=== PATIENT | female | born 1965 | race Caucasian/White ===

== ENCOUNTER → 2016-03-11 12:56 | Outpatient (CLI) | payer MEDICARE, MEDICAID ==
[2015-09-07 11:05] VITALS: BMI 47.8
[~2016-03-11 12:56] MED LIST: ALBUTEROL2.5 MG/3 M INH; CARAFATE1 G PO; COLACE100 MG PO; CYCLOBENZAPRINE10 MG PO; CYMBALTA60 MG PO; DESYREL50 MG PO; DILAUDID2 MG PO; FLOVENT HFA 22012 GM INH; FUROSEMIDE20 MG PO; GLUCOPHAGE1000 MG PO; HUMALOG 30100 UNITS/; INDERAL 40 MG T40 MG PO; LASIX40 MG PO; LEVAQUIN750 MG PO; LEVEMIR100 U/M1 SC; LEVEMIR100 U/M1 SQ; LIDODERM 5 %1 PATCH TD; LIPITOR40 MG PO; LISINOPRIL5 MG PO; LOMOTIL TABLET1 TAB PO; MIRALAX17 GM PO; MULTI-DAY VITAM1 TAB PO; NEURONTIN 100100 MG PO; NEURONTIN600 MG PO; NITROSTAT0.4 MG SL; NORCO 10/325 TA1 TA1 PO; NYSTATIN1 PWD TOPICAL; OMEPRAZOLE40 MG PO; OPANA ER40 MG PO; OPANA10 MG PO; OPANA5 MG PO; OXYCONTIN10 MG PO; PHENERGAN25 M1 PO; POTASSIUM CHLO10 ME1 PO; PROVENTIL/2.5 MG/3 M INH; REQUIP0.5 MG PO; TOPROL XL50 MG PO; TRAZODONE HCL50 MG PO; VALIUM10 MG PO; WELLBUTRIN SR150 MG PO; XANAX1 MG PO; ZANAFLEX4 MG PO
== END | disposition home or self-care (01) ==
LOC: D.MRI 03-07 09:00
DX: G43.909 Migraine, unspecified, not intractable, without status migrainosus (principal); M54.2 Cervicalgia

== ENCOUNTER 2016-03-16 16:03 | Inpatient (IN) | payer MEDICARE, MEDICAID ==
[~2016-03-16] VITALS: Ht 166.4 cm; Wt 130.0 kg
[~2016-03-16 16:03] MED LIST changes: -LASIX40 MG PO; -LEVAQUIN750 MG PO; -NYSTATIN1 PWD TOPICAL
[2016-03-16 18:23] LABS: BASOPHILS 0.1 % (0.0-2.0); EOSINOPHILS 0 % (0-7); HEMOGLOBIN 14.3 g/dL (12-16); IMMATURE GRANULOCYTES 0.2 % (0-5); LYMPHOCYTES 22.2 % (15-50); MCH 31.6 pg (26.0-34.0); MCHC 31.8 g/dL (31.0-37.0); MCV 99.6 fL (80.0-100.0); MEAN PLATELET VOLUME 9.3 fL (7.4-10.4); NEUTROPHILS 71.5 % (40-80); PLATELET COUNT 247 10x3/uL (130-400); RBC 4.52 10x6/uL (4.00-5.40); RDW 14.1 % (11.5-14.5); WBC 16.1 10x3/uL (4.8-10.8)
[2016-03-16 18:35] LABS: APTT 31.4 SECONDS (22.8-39.4); INR 0.98 (0.85-1.17); PROTIME 12.8 SECONDS (11.6-15.0)
[2016-03-16 18:43] LABS: ALBUMIN 3.1 g/dL (3.4-5.0); ANION GAP 8.6 mmol/L (8-16); BILIRUBIN - TOTAL 0.6 mg/dL (0.2-1.3); CALCIUM 9.6 mg/dL (8.5-10.1); CARBON DIOXIDE 37.6 mmol/L (21.0-32.0); POTASSIUM - SERUM 4.2 mmol/L (3.5-5.1); PROTEIN - SERUM 7.8 g/dL (6.4-8.2)
[2016-03-16 19:18] LABS: APPEARANCE CLOUDY (CLEAR); BILIRUBIN NEGATIVE (NEGATIVE); COLOR YELLOW (YELLOW); GLUCOSE NEGATIVE (NEGATIVE); KETONE NEGATIVE (NEGATIVE); LEUKOCYTE ESTERASE 2+ (NEGATIVE); NITRITE POSITIVE (NEGATIVE); PROTEIN NEGATIVE (NEGATIVE); UROBILINOGEN NORMAL (NORMAL)
[2016-03-16 19:20] LABS: BACTERIA MANY /hpf (NONE SEEN); CALCIUM OXALATE CRYSTALS 0-5 /hpf (NONE SEEN); EPITHELIAL CELLS 0-5 /hpf (0-5); RED CELLS - URINE 0-5 /hpf (0-5)
--- NOTE | 2016-03-16 19:58 | NUR ---
RECEIVED PATIENT TO ROOM VIA STRETCHER. IN STABLE CONDITION. NO SIGNS OF DISTRESS NOTED. ORIENTED TO ROOM AND USE OF CALL LIGHT. BED LOW. CALL LIGHT IN REACH.
[2016-03-16] MEDS ORDERED: LASIX40 MG PO (20:07)
[2016-03-16] MEDS ORDERED: LEVEMIR100 U/M1 SC (20:08)
[2016-03-16 23:21] VITALS: BP 148/101; Ht 166.4 cm; Wt 130.0 kg
[2016-03-17 02:00] VITALS: BP 139/82
[2016-03-17 08:30] VITALS: BP 137/72
[2016-03-17 10:01] LABS: BASOPHILS 0.2 % (0.0-2.0); EOSINOPHILS 0 % (0-7); HEMOGLOBIN 13.4 g/dL (12-16); IMMATURE GRANULOCYTES 0.3 % (0-5); LYMPHOCYTES 24.7 % (15-50); MCH 30.9 pg (26.0-34.0); MCHC 31.9 g/dL (31.0-37.0); MEAN PLATELET VOLUME 9.4 fL (7.4-10.4); MONOCYTES 7.9 % (2-11); NEUTROPHILS 66.9 % (40-80); PLATELET COUNT 227 10x3/uL (130-400); RBC 4.33 10x6/uL (4.00-5.40)
[2016-03-17 10:03] LABS: WBC 9.6 10x3/uL (4.8-10.8)
[2016-03-17 10:30] LABS: ALBUMIN 2.7 g/dL (3.4-5.0); ANION GAP 9.7 mmol/L (8-16); BILIRUBIN - TOTAL 0.54 mg/dL (0.2-1.3); CALCIUM 9.7 mg/dL (8.5-10.1); CARBON DIOXIDE 35.1 mmol/L (21.0-32.0); CREATININE - SERUM 0.9 mg/dL (0.6-1.3); POTASSIUM - SERUM 3.8 mmol/L (3.5-5.1); PROTEIN - SERUM 7.2 g/dL (6.4-8.2)
[2016-03-17 12:14] VITALS: BP 131/81
--- NOTE | 2016-03-17 14:36 | NUR ---
Patient Name: JORDEN AYALA Admission Status: ER Accout number: [id number] Admission Date: 03-16-2016 : 1965 Admission Diagnosis: Attending: KELSEA Current LOS: 1 Anticipated DC Date: 03-20-2016 Planned Disposition: Home Primary Insurance: [facility] Discharge Planning Comments: CM MET WITH PATIENT AND SPOUSE (JAZZMINE) REGARDING D/C NEEDS AND PLANS. PATIENT STATED HER SPOUSE HELPS HER EVERYDAY. PATIENT STATED THEY HAVE A RAMP AT HOME TO ENTER AND NO STAIRS INSIDE. PATIENT STATED HER HELPS HER DAILY-PATIENT HAS A WALKER, W/C, CANE, SHOWER CHAIR, NEBULIZER, O2, PORT O2, AND ELEC. WHEELCHAIR AT HOME IF NEEDED. PATIENT REFUSED HOME HEALTH. CM WILL CONTINUE TO FOLLOW PATIENT WITH D/C NEEDS AND PLANS. PCP DR. POST [facility]- [phone] JAZZMINE (SPOUSE) [phone] Station Inspector: Anne Luna Is the patient Alert and Oriented? Yes 0 * How many steps to enter\exit or inside your home? RAMP 0 * PCP DR. POST 0 * Pharmacy [facility] 0 * Preadmission Environment Home with Family 0 * ADLs Partial Dependent 0 * Partial ADLs (Assistance needed) Ambulation Bathing Dressing Medication Management Toileting Transfers 0 * Equipment Bedside Commode Cane Crutch Nebulizer Oxygen Rolling Walker Shower Chair Wheelchair 0 * List name and contact numbers for known caregivers / representatives who currently or will assist patient after discharge: JAZZMINE (SPOUSE) [phone] 0 * Community resources currently utilized None 0 * Additional services required to return to the preadmission environment? Yes 0 * Can the patient safely return to the preadmission environment? Yes 0 * Has this patient been hospitalized within the prior 30 days at any hospital? No 0 Grand Total: 0
[2016-03-17 16:54] VITALS: BP 102/63
[2016-03-17 21:00] VITALS: BP 145/69
[2016-03-18 00:21] VITALS: BP 127/76
--- NOTE | 2016-03-18 02:14 | NUR ---
RESTING WITH EYES CLOSED, RESP WITH EASE, NO DISTRESS NOTED, CL IN REACH
[2016-03-18 05:00] VITALS: BP 150/91
[2016-03-18 06:43] LABS: BASOPHILS 0.2 % (0.0-2.0); EOSINOPHILS 0 % (0-7); HEMATOCRIT 41.9 % (36.0-48.0); HEMOGLOBIN 13.4 g/dL (12-16); IMMATURE GRANULOCYTES 0.2 % (0-5); MCH 31.2 pg (26.0-34.0); MCV 97.7 fL (80.0-100.0); MEAN PLATELET VOLUME 9.4 fL (7.4-10.4); MONOCYTES 9.1 % (2-11); NEUTROPHILS 62.5 % (40-80); PLATELET COUNT 221 10x3/uL (130-400); RBC 4.29 10x6/uL (4.00-5.40); RDW 14.2 % (11.5-14.5); WBC 9.6 10x3/uL (4.8-10.8)
[2016-03-18 07:05] LABS: ALBUMIN 2.7 g/dL (3.4-5.0); ALT (SGPT) 23 U/L (10-68); CALC OSMOLALITY 277 mosm/kg (275-300); CALCIUM 8.7 mg/dL (8.5-10.1); CARBON DIOXIDE 35.9 mmol/L (21.0-32.0); CHLORIDE - SERUM 98 mmol/L (98-107); CREATININE - SERUM 0.7 mg/dL (0.6-1.3); GLUCOSE 132 mg/dL (74-106); POTASSIUM - SERUM 3.7 mmol/L (3.5-5.1); SODIUM 138 mmol/L (136-145); UREA NITROGEN 13 mg/dL (7-18); eGFR NON AFRICAN AMERICAN > 90 mL/min (90-120)
--- NOTE | 2016-03-18 07:15 | NUR ---
PATIENT RECEIVED IN LEFT LATERAL POSITION ALERT AND RESTING QUIETLY. NO SIGNS OF DISTRESS NOTED. GUEST AT BEDSIDE. SIDE RAILS UP X2. BED IN LOW POSITION. CALL LIGHT IN REACH.
[2016-03-18 07:22] LABS: ALKALINE PHOSPHATASE 101 U/L (46-116); PROTEIN - SERUM 7.1 g/dL (6.4-8.2)
[2016-03-18 07:53] VITALS: BP 114/74
[2016-03-18 08:03] LABS: ERYTHROCYTE SEDIMENTATION RATE 50 mm/hr (0-30)
--- NOTE | 2016-03-18 08:33 | NUR ---
PATIENT ALERT IN BED. NO SIGNS OF DISTRESS NOTED. SCHEDULED MEDICATION ADMINSITERED. DENIES NEEDS. FAMILY PRESENT. SIDE RAILS UP X2. BED IN LOW POSITION. CALL LIGHT IN REACH.
[2016-03-18 09:22] LABS: UDS - AMPHET NEGATIVE QUAL (NEGATIVE); UDS - BARB NEGATIVE QUAL (NEGATIVE); UDS - BENZO POSITIVE QUAL (NEGATIVE); UDS - COCAINE NEGATIVE QUAL (NEGATIVE); UDS - METH NEGATIVE QUAL (NEGATIVE); UDS - OPIATE POSITIVE QUAL (NEGATIVE); UDS - PCP NEGATIVE QUAL (NEGATIVE); UDS - THC NEGATIVE QUAL (NEGATIVE)
--- NOTE | 2016-03-18 11:10 | NUR ---
ACCU CHECK 167 INSULIN PER SLIDING SCALE. CALL LIGHT IN REACH. DENIES NEEDS. DONOHUE CARE PROVIDED. DONOHUE D/C. APPROXIMATELY 100CC IN COLLECTION BAG. WELL TOLERATED. WILL CONTINUE TO MONITOR OUTPUT. CALL LIGHT IN REACH. BED IN LOW POSITION.
[2016-03-18 12:18] VITALS: BP 128/76
--- NOTE | 2016-03-18 13:00 | NUR ---
PATIENT IN HIGH SANTANA POSITION RESTING WITH EYES CLOSED. RESPIRATIONS EVEN AND UNLABORED. SIDE RAILS UP X2. BED IN LOW POSITION. CALL LIGHT IN REACH. FAMILY AT BEDSIDE.
[2016-03-18 16:18] VITALS: BP 121/75
--- NOTE | 2016-03-18 17:00 | NUR ---
PATIENT ALERT IN BED. ACCU CHECK 97. NO INSULIN PER SLIDING SCALE. DENIES NEEDS. SIDE RAILS UP X2. BED IN LOW POSITION. CALL LIGHT IN REACH. FAMILY AT BEDSIDE.
--- NOTE | 2016-03-18 20:15 | NUR ---
PATIENT SITTING UP IN BED WATCHING TV. NO SIGNS OF DISTRESS NOTED AT THIS TIME. DENIES ANY NEEDS. BED LOW CALL LIGHT IN REACH.
[2016-03-18 22:00] VITALS: BP 152/93
[2016-03-19 05:32] LABS: BASOPHILS 0.2 % (0.0-2.0); EOSINOPHILS 0 % (0-7); HEMOGLOBIN 13.4 g/dL (12-16); IMMATURE GRANULOCYTES 0.2 % (0-5); MCH 30.5 pg (26.0-34.0); MCHC 31.2 g/dL (31.0-37.0); MCV 97.9 fL (80.0-100.0); MEAN PLATELET VOLUME 9.3 fL (7.4-10.4); MONOCYTES 9.6 % (2-11); PLATELET COUNT 240 10x3/uL (130-400); RBC 4.39 10x6/uL (4.00-5.40); RDW 14.1 % (11.5-14.5); WBC 8.1 10x3/uL (4.8-10.8)
[2016-03-19 05:57] LABS: ALBUMIN 2.8 g/dL (3.4-5.0); ALKALINE PHOSPHATASE 103 U/L (46-116); ALT (SGPT) 26 U/L (10-68); CALC OSMOLALITY 278 mosm/kg (275-300); CARBON DIOXIDE 38.9 mmol/L (21.0-32.0); CHLORIDE - SERUM 97 mmol/L (98-107); CREATININE - SERUM 0.8 mg/dL (0.6-1.3); GLUCOSE 113 mg/dL (74-106); POTASSIUM - SERUM 3.6 mmol/L (3.5-5.1); PROTEIN - SERUM 7.5 g/dL (6.4-8.2); SODIUM 140 mmol/L (136-145); UREA NITROGEN 10 mg/dL (7-18); eGFR NON AFRICAN AMERICAN 80 mL/min (90-120)
--- NOTE | 2016-03-19 07:20 | NUR ---
PATIENT RECEIVED ALERT IN LOW SANTANA POSITION. RESPIRATIONS EVEN AND UNLABORED. SIDE RAILS UP X2. BED IN LOW POSITION. CALL LIGHT IN REACH.
--- NOTE | 2016-03-19 08:06 | NUR ---
PATIENT ALERT IN HIGH SANTANA POSITION. NO SIGNS OF DISTRESS NOTED. SCHEDULED MEDICATION ADMINISTERED. SIDE RAILS UP X2. BED IN LOW POSITION. CALL LIGHT IN REACH.
[2016-03-19 08:13] VITALS: BP 112/75
--- NOTE | 2016-03-19 10:38 | NUR ---
ALERT IN BED. C/O NAUSEA AND PAIN. ZOFRAN AND OXY IR ADMINISTERED PER PRN ORDER. NO FURTHER NEEDS VOICED. SIDE RAILS UP X2. BED IN LOW POSITION. CALL LIGHT IN REACH.
[2016-03-19 11:56] VITALS: BP 125/79
--- NOTE | 2016-03-19 12:05 | NUR ---
ALERT IN BED WATCHING TV. RESPIRATIONS EVEN AND UNLABORED. STATES PAIN IS BETTER. FAMILY AT BEDSIDE. SIDE RAILS UP X2. BED IN LOW POSITION. CALL LIGHT IN REACH.
[2016-03-19 12:17] LABS: ANA REFLEX - DIRECT Negative (Negative)
[2016-03-19 13:18] LABS: IMMUNOGLOBULIN E 17 IU/mL (0-100)
[2016-03-19 15:52] VITALS: BP 133/79
--- NOTE | 2016-03-19 16:05 | NUR ---
PATIENT IN LEFT LATERAL POSITION. NO SIGNS OF DISTRESS NOTED. ACCU CHECK 123. DENIES NEEDS. SIDE RAILS UP X2. BED IN LOW POSITION. CALL LIGHT IN REACH.
--- NOTE | 2016-03-19 17:50 | NUR ---
C/O NAUSEA. ZOFRAN ADMINISTERED PER PRN ORDER. DENIES FURTHER NEEDS. FAMILY PRESENT. SIDE RAILS UP X2. BED IN LOW POSITION. CALL LIGHT IN REACH.
[2016-03-19 21:33] VITALS: BP 147/75
[2016-03-20 01:00] VITALS: BP 104/68
--- NOTE | 2016-03-20 02:17 | NUR ---
PATIENT HAS 10/10 PAIN. ADMINISTERED PAIN MEDS DUE.
[2016-03-20 05:47] LABS: BASOPHILS 0.3 % (0.0-2.0); EOSINOPHILS 0 % (0-7); HEMATOCRIT 43.2 % (36.0-48.0); HEMOGLOBIN 13.7 g/dL (12-16); IMMATURE GRANULOCYTES 0.1 % (0-5); LYMPHOCYTES 38.4 % (15-50); MCHC 31.7 g/dL (31.0-37.0); MCV 97.7 fL (80.0-100.0); MEAN PLATELET VOLUME 9.3 fL (7.4-10.4); MONOCYTES 11.1 % (2-11); NEUTROPHILS 50.1 % (40-80); PLATELET COUNT 235 10x3/uL (130-400); RBC 4.42 10x6/uL (4.00-5.40); RDW 13.8 % (11.5-14.5); WBC 7.3 10x3/uL (4.8-10.8)
[2016-03-20 06:21] LABS: ALBUMIN 2.8 g/dL (3.4-5.0); BILIRUBIN - TOTAL 0.44 mg/dL (0.2-1.3); CALCIUM 9.6 mg/dL (8.5-10.1); CREATININE - SERUM 0.9 mg/dL (0.6-1.3); PROTEIN - SERUM 7.4 g/dL (6.4-8.2)
[2016-03-20 06:22] LABS: ANION GAP 8.3 mmol/L (8-16); POTASSIUM - SERUM 4.3 mmol/L (3.5-5.1)
--- NOTE | 2016-03-20 07:20 | NUR ---
PATIENT RECEIVED ALERT IN MID SANTANA POSITION. RESPIRATIONS EVEN AND UNLABORED. SIDE RAILS UP X2. BED IN LOW POSITION. CALL LIGHT IN REACH. FAMILY PRESENT.
[2016-03-20 08:19] VITALS: BP 107/67
--- NOTE | 2016-03-20 08:20 | NUR ---
PATIENT ALERT IN MID SANTANA POSITION. NO SIGNS OF DISTRESS NOTED. FAMILY AT BEDSIDE. SCHEDULED MEDICATION ADMINISTERED. DENIES NEEDS. SIDE RAILS UP X2. BED IN LOW POSITION. CALL LIGHT IN REACH.
[2016-03-20] MEDS ORDERED: NYSTATIN1 PWD TOPICAL (10:22)
--- NOTE | 2016-03-20 11:03 | NUR ---
CM REASSESSMENT NOTE: PATIENT IS DISCHARGING HOME TODAY. REFUSED HOME HEALTH. PATIENT HAS 02 AT HOME AND PORTABLE IS BEING BROUGHT TO HOSPITAL BY FOR DISCHARGE.
--- NOTE | 2016-03-20 11:10 | NUR ---
PATIENT ALERT IN BED. NO SIGNS OF DISTRESS NOTED. ANTICIPATING D/C HOME. ACCU CHECK 179. INSULIN PER SLIDING SCALE. IV TO RIGHT HAND D/C HOME WITH CATH TIP INTACT. SITE COVERED WITH GAUZE AND BANDAID.
[2016-03-20] MEDS ORDERED: LEVAQUIN750 MG PO (11:13)
[2016-03-20 11:53] VITALS: BP 121/69
--- NOTE | 2016-03-20 13:55 | NUR ---
D/C TEACHING PROVIDED TO PATIENT AND . STATES UNDERSTANDING. ALL QUESTIONS ANSWERED.
--- NOTE | 2016-03-20 14:00 | NUR ---
PATIENT D/C HOME WITH . TRANSFERRED DOWNSTAIRS VIA WHEELCHAIR WITH STAFF
[2016-03-26 11:18] LABS: FUNGAL - ASP FLAVUS Negative; FUNGAL - ASP NIGER Negative; FUNGAL - ASPER FUMIGATUS Negative; FUNGAL - COCCIDIOIDES Negative
== END 2016-03-20 14:22 | disposition home or self-care (01) | DRG 689 ==
LOC: D.ER 16:03 → D.MS 18:53
PROVIDERS: Emergency Medicine; Internal Medicine Pulmonary Disease; ADMIT Family Medicine
DX: N39.0 Urinary tract infection, site not specified (principal); G93.49 Other encephalopathy; Z68.42 Body mass index [BMI] 45.0-49.9, adult; J96.12 Chronic respiratory failure with hypercapnia; E11.9 Type 2 diabetes mellitus without complications; I11.0 Hypertensive heart disease with heart failure; I50.9 Heart failure, unspecified; Z99.81 Dependence on supplemental oxygen; D64.9 Anemia, unspecified; B96.20 Unspecified Escherichia coli [E. coli] as the cause of diseases classified elsewhere; G47.33 Obstructive sleep apnea (adult) (pediatric); I25.10 Atherosclerotic heart disease of native coronary artery without angina pectoris; K21.9 Gastro-esophageal reflux disease without esophagitis; E66.01 Morbid (severe) obesity due to excess calories; I27.2 Other secondary pulmonary hypertension; J44.9 Chronic obstructive pulmonary disease, unspecified

== ENCOUNTER → 2016-04-08 16:59 | Outpatient (CLI) | payer MEDICARE, MEDICAID ==
[2016-03-16 23:21] VITALS: BMI 47.0
[~2016-04-08 16:59] MED LIST changes: +LASIX40 MG PO; +LEVAQUIN750 MG PO; +NYSTATIN1 PWD TOPICAL
== END | disposition home or self-care (01) ==
LOC: D.MAMMO 15:00
DX: Z12.31 Encounter for screening mammogram for malignant neoplasm of breast (principal)

== ENCOUNTER 2016-08-19 05:20 | Observation (INO) | payer MEDICARE ==
[~2016-08-19] VITALS: Ht 165.1 cm; Wt 113.6 kg
[2016-08-19 06:25] LABS: BASOPHILS 0.2 % (0-2); EOSINOPHILS 0 % (0-7); HEMOGLOBIN 13.2 g/dL (12-16); IMMATURE GRANULOCYTES 0.3 % (0-5); LYMPHOCYTES 31.1 % (15-50); MCH 29.7 pg (26.0-34.0); MCHC 30.7 g/dL (31.0-37.0); MCV 96.8 fL (80.0-100.0); MEAN PLATELET VOLUME 9.5 fL (7.4-10.4); MONOCYTES 7.6 % (2-11); NEUTROPHILS 60.8 % (40-80); PLATELET COUNT 247 10x3/uL (130-400); RBC 4.44 10x6/uL (4.00-5.40); RDW 16.6 % (11.5-14.5); WBC 10.1 10x3/uL (4.8-10.8)
[2016-08-19 06:30] LABS: APPEARANCE CLOUDY (CLEAR); BACTERIA MANY /hpf (NONE SEEN); BILIRUBIN NEGATIVE (NEGATIVE); COLOR DK YELLOW (YELLOW); EPITHELIAL CELLS 0-5 /hpf (0-5); GLUCOSE NEGATIVE (NEGATIVE); KETONE NEGATIVE (NEGATIVE); LEUKOCYTE ESTERASE 1+ (NEGATIVE); MUCUS <1+ /lpf (NONE SEEN); NITRITE POSITIVE (NEGATIVE); PROTEIN TRACE mg/dL (NEGATIVE); RED CELLS - URINE OCC /hpf (0-5); WHITE CELLS - URINE 25-50 /hpf (0-5)
[2016-08-19 06:43] LABS: ALBUMIN 2.4 g/dL (3.4-5.0); ANION GAP 6.9 mmol/L (8-16); BILIRUBIN - TOTAL 0.3 mg/dL (0.2-1.3); CARBON DIOXIDE 39.6 mmol/L (21.0-32.0); CREATININE - SERUM 0.9 mg/dL (0.6-1.3); POTASSIUM - SERUM 3.5 mmol/L (3.5-5.1); PROTEIN - SERUM 7.1 g/dL (6.4-8.2)
--- NOTE | 2016-08-19 12:05 | NUR ---
REPORT REC'D FROM SHANELL JONES, IN ER. ROOM BEING CLEANED CURRENTLY.
--- NOTE | 2016-08-19 12:39 | NUR ---
PT REC'D TO ROOM VIA BED. PT ABLE TO AMBULATE FROM STRETCHER TO BED W/O DIFFICULTY. AAOX4. RATING CURRENT PAIN IN BACK 5/10. STATES THIS IS A CHRONIC THING FOR HER. REGULAR HEART RATE AND RHYTHM. WHEEZES TO UPPER AND MIDLE R LOBE, AND CLEAR TO THE LEFT LOBE. BOWEL SOUNDS ACTIVE X4 QUADRANTS. SKIN CLEAN, DRY, AND INTACT WITH MULTIPLE TATTOOS. GENERALIZED SWELLING NOTED BILAT TO HANDS. VSS. CURRENTLY SATING 90% ON 2L VIA NC. BUMPED UP TO 3L AND PT O2 SAT IS NOW 96%. STATES SHE NORAMLLY WEARS O2 AT HOME AT 2L. AT BEDSIDE. BED LOW, CALL LIGHT IN REACH, DENIES NEEDS. CPOC.
[2016-08-19 16:10] VITALS: BP 127/72
[2016-08-19 17:27] VITALS: BP 132/70; Ht 165.1 cm; Wt 113.6 kg
--- NOTE | 2016-08-19 18:14 | NUR ---
MIKE, POULTRY TRIMMER, PAGED REGARDING PT FSBS OF 181.
--- NOTE | 2016-08-19 18:18 | NUR ---
SOM MKCEON, RETURNED CALL AT THIS TIME. STATED, "GET ONE MORE GOOD BLOOD SUGAR AND THEN CHANGE IT TO Q4H FS." NO CHANGES TO IVF OR MEDS AT THIS TIME.
--- NOTE | 2016-08-19 19:25 | NUR ---
RECIEVED SHIFT REPORT. PT IS LYING IN BED. ALERT AND ORIENTED AND ABLE TO VERBALIZE NEEDS. IV IS PATENT AND FLUIDS ARE RUNNING PER ORDER. PT IS AMBULATORY BUT WAS INSTRUCTED TO CALL FOR ASSISTANCE. O2 @ 3 PER NASAL CANNULA. SCD'S ON. PT STATES PAIN IS 10/10. NO NEEDS ARE VERBALIZED AT THIS TIME. WILL CONTINUE TO MONITOR. SIDE RAILS ARE UP X 2. BED IS IN LOWEST POSITION. CALL LIGHT IS WITHIN REACH.
[2016-08-19 20:00] VITALS: BP 132/63
--- NOTE | 2016-08-19 20:35 | NUR ---
CALLED PHARMACY TO HAVE SCHEDULED OXYCONTIN RETIMED. ORDER IS FOR Q8H. LAST DOSE GIVEN AT 1652.
--- NOTE | 2016-08-19 20:50 | NUR ---
SHIFT ASSESSMENT COMPLETED. NIGHT MEDS GIVEN WITH NO PROBLEMS. PT REQUESTING HER OXYCONTIN. INSTRUCTED PT THAT THE NEXT DOSE WOULD NOT BE DUE UNTIL 0100. PT STATES DAY NURSE TOLD HER SHE COULD HAVE IT AT 2100. I INSTRUCTED PT THAT THE LAST DOSE SHE HAD WAS AT 1652 AND THAT IT WAS ONLY ORDERED Q8H AND SO HER NEXT DOSE COULD NOT BE GIVEN UNTIL AROUND 0100. VERBALIZED UNDERSTANDING. NO FURTHER NEEDS AT THIS TIME. WILL MONITOR. SIDE RAILS X 2. BED LOW. CALL LIGHT IN REACH.
[2016-08-20] VITALS: BP 137/81
[2016-08-20 04:00] VITALS: BP 138/80
[2016-08-20 06:14] LABS: BASOPHILS 0.1 % (0-2); EOSINOPHILS 0 % (0-7); HEMATOCRIT 41.7 % (36.0-48.0); IMMATURE GRANULOCYTES 0.3 % (0-5); LYMPHOCYTES 35.2 % (15-50); MCH 29.5 pg (26.0-34.0); MCHC 31.2 g/dL (31.0-37.0); MEAN PLATELET VOLUME 10.4 fL (7.4-10.4); MONOCYTES 8.7 % (2-11); NEUTROPHILS 55.7 % (40-80); PLATELET COUNT 246 10x3/uL (130-400); RBC 4.41 10x6/uL (4.00-5.40); RDW 16.5 % (11.5-14.5)
[2016-08-20 06:25] LABS: HEMOGLOBIN A1C 5.3 % (4.8-6.0)
[2016-08-20 06:27] LABS: MCV 94.6 fL (80.0-100.0); WBC 7.5 10x3/uL (4.8-10.8)
[2016-08-20 06:28] LABS: ALBUMIN 2.3 g/dL (3.4-5.0); ALKALINE PHOSPHATASE 89 U/L (46-116); BILIRUBIN - TOTAL 0.57 mg/dL (0.2-1.3); CALCIUM 8.8 mg/dL (8.5-10.1); CARBON DIOXIDE 38.3 mmol/L (21.0-32.0); CHLORIDE - SERUM 98 mmol/L (98-107); PROTEIN - SERUM 6.4 g/dL (6.4-8.2); SODIUM 139 mmol/L (136-145); UREA NITROGEN 8 mg/dL (7-18)
[2016-08-20 06:30] LABS: ALT (SGPT) 17 U/L (10-68); CALC OSMOLALITY 281 mosm/kg (275-300); CREATININE - SERUM 0.5 mg/dL (0.6-1.3); GLUCOSE 200 mg/dL (74-106); POTASSIUM - SERUM 5.1 mmol/L (3.5-5.1); eGFR NON AFRICAN AMERICAN > 90 mL/min (90-120)
--- NOTE | 2016-08-20 07:00 | NUR ---
PT REC'D FROM SHANELL SUAZO. RESTING IN BED WATCHING TV. AAOX4. ASKING ABOUT MEDICATIONS. EXPLAINED TO PT THAT THE DOCTORS CONTINUED HER HOME MEDICATIONS EXCEPT FOR HER OPANA BECAUSE SHE WAS ALREADY ON AN EXTENDED RELEASE NARCOTIC. PT UNHAPPY WITH THIS AND STATED SHE WANTED TO ASK THE DOCTOR WHY. I EXPLAINED THAT THE DOCTOR WOULD BE IN SHORTLY. NO OTHER QUESTIONS OR CONCERNS AT THIS TIME. PIV TO L HAND TENDER AND SWOLLEN. DC'D WITH CATHETER INTACT. WILL ATTEMPT TO RESITE LATER. BED LOW, CALL LIGHT REACH, DENIES NEEDS. CPOC.
--- NOTE | 2016-08-20 08:00 | NUR ---
CURRENT FSBS 175. NO INSULIN ORDERED AT THIS TIME.
--- NOTE | 2016-08-20 08:49 | NUR ---
MORNING MEDS PASSED. SCHEDULED PAIN MEDICATION ADMINISTERED PER APR. RATING CURRENT PAIN IN BACK AND LEGS 12/09. WILL REASSESS. BED LOW, CALL LIGHT IN REACH, DENIES NEEDS. CPOC.
--- NOTE | 2016-08-20 09:55 | NUR ---
Patient Name: JORDEN AYALA Admission Status: ER Accout number: [id number] Admission Date: 08-19-2016 : 1965 Admission Diagnosis: Attending: ASHLEY Current LOS: 1 Anticipated DC Date: Planned Disposition: Primary Insurance: [facility] Discharge Planning Comments: CM MET WITH PATIENT REGARDING D/C NEEDS AND PLANS. PATIENT STATES SHE LIVES WITH HER SPOUSE (JAZZMINE) AND HE WILL DRIVE HER HOME AT DISCHARGE. PATIENT HAS A WHEELCHAIR RAMP TO ENTER HOME AND NO STAIRS INSIDE. PATIENT IS INDEPENDENT WITH HER CARE AND HAS A WALKER, WHEELCHAIR (ELEC), BS COMMODE, SHOWER CHAIR, OXYGEN 2L, NEBULIZER, PORTABLE O2, AND GLUCOMETER (CKS. 2X DAY). PATIENTS PCP IS DR. RESTREPO AND USES [facility]. PATIENT WAS OFFERED HOME HEALTH AT DISCHARGE AND SHE REFUSED AND CM STATED IT WOULD BE GOOD FOR DIABETIC TEACHING. PATIENT STATED NO-SHE WOULD TALK WITH HER SPOUSE. CM WILL CONTINUE TO FOLLOW PATIENT WITH D/C NEEDS AND PLANS. PCP DR. RESTREPO [facility]- [phone] JAZZMINE (SPOUSE) [phone] Motion Picture Set Grip: Anne Luna Is the patient Alert and Oriented? Yes 0 * How many steps to enter\exit or inside your home? RAMP 0 * PCP DR. RESTREPO 0 * Pharmacy [facility] 0 * Preadmission Environment Home with Family 0 * ADLs Independent 0 * Equipment Bedside Commode Glucometer Nebulizer Oxygen Shower Chair Walker Wheelchair 0 * Other Equipment WHEELCHAIR IS ELEC. 0 * List name and contact numbers for known caregivers / representatives who currently or will assist patient after discharge: JAZZMINE (SPOUSE) 0 * Community resources currently utilized None 0 * Additional services required to return to the preadmission environment? Yes 0 * Can the patient safely return to the preadmission environment? Yes 0 * Has this patient been hospitalized within the prior 30 days at any hospital? No 0 Grand Total: 0
[2016-08-20 10:05] VITALS: BP 138/68
[2016-08-20 11:36] VITALS: BP 127/55
[2016-08-20] MEDS ORDERED: MACROBID100 MG PO (12:22)
[2016-08-20] MEDS ORDERED: GLUCOPHAGE500 MG PO (12:23)
[2016-08-20] MEDS ORDERED: LEVEMIR100 U/M1 SC (12:23)
--- NOTE | 2016-08-20 13:00 | NUR ---
PT AOX4 PT HERE FOR HYPOGLYCEMIA FROM INSULIN FOR THIS VISIT. IV TO LEFT HAND PATENT AND INTACT AT THIS TIME. PT DENIES NEEDS AT THIS TIME. SRX2 BED AT LOWEST SETTING CALL LIGHT WITHIN REACH WILL CONTINUE TO MONITOR
--- NOTE | 2016-08-20 14:06 | NUR ---
DC PAPERS REVIEWED WITH PT AND AT BEDSIDE. NO QUESTIONS OR CONCERNS VOICED AT THIS TIME. SIGNED PAPERS DUE TO PT INABILITY TO WITHOUT HER GLASSES. IV ALREADY DC'D. ESCORTED OUT VIA WC BY EDWIN HASSAN.
== END 2016-08-20 14:07 | disposition home or self-care (01) ==
LOC: D.ER 05:20 → D.MS 07:26 → OBSVTIME 07:26 → D.MS 08-20 14:07
PROVIDERS: Emergency Medicine; ADMIT Family Medicine
DX: E11.649 Type 2 diabetes mellitus with hypoglycemia without coma (principal); Z79.4 Long term (current) use of insulin; F43.10 Post-traumatic stress disorder, unspecified; X58.XXXA Exposure to other specified factors, initial encounter; Z86.73 Personal history of transient ischemic attack (TIA), and cerebral infarction without residual deficits; I10 Essential (primary) hypertension; J44.9 Chronic obstructive pulmonary disease, unspecified; Z99.81 Dependence on supplemental oxygen; K21.9 Gastro-esophageal reflux disease without esophagitis

== ENCOUNTER → 2017-05-27 13:25 | Outpatient (CLI) | payer MEDICARE ==
[2016-08-19 17:27] VITALS: BMI 41.6
[~2017-05-27 13:25] MED LIST changes: +GLUCOPHAGE500 MG PO; +MACROBID100 MG PO
== END | disposition home or self-care (01) ==
LOC: D.RT 13:25
DX: J44.9 Chronic obstructive pulmonary disease, unspecified (principal)

== ENCOUNTER 2017-07-13 19:52 | Inpatient (IN) | payer MEDICARE ==
[~2017-07-13] VITALS: Ht 165.1 cm; Wt 102.8 kg
--- NOTE | ~2017-07-13 | CN ---
PATIENT NAME:JORDEN AYALA MEDICAL RECORD: [id number] : [birth year] LOCATION:[id number] ADMIT DATE: 07/13/17 ACCOUNT: [id number] CONSULTING PHYSICIAN: IAIN LEE MD REFERRING PHYSICIAN: GUILLERMO MCDONALD MD DATE OF CONSULTATION: 07/14/2017 CONSULT REQUESTING PHYSICIAN: Guillermo Mcdonald MD REASON FOR CONSULTATION: Acute hypoxic hypercapnic respiratory failure, COPD exacerbation. HISTORY OF PRESENT ILLNESS: Ms. Ayala is a 52-year-old female. She was brought into the hospital with acute mental status changes. On arrival, she was in CO2 narcosis and respiratory acidosis. Now, she is more awake and alert. She has cough with very little sputum production. According to the , she is taking her medication regularly. She did not overdose on her narcotics. REVIEW OF SYSTEMS: Mainly in the history of present illness. PAST MEDICAL HISTORY: 1. COPD. 2. Chronic hypoxic respiratory failure. 3. Chronic bronchitis. 4. History of cerebrovascular accident. 5. Migraine headache. 6. History of anemia. 7. Anxiety, depression, and PTSD. PAST SURGICAL HISTORY: 1. Cholecystectomy. 2. Foot surgery. 3. Appendectomy. 4. Hysterectomy. ALLERGIES: SHE IS ALLERGIC TO HYDROCODONE, NONSTEROID ANTI-INFLAMMATORY MEDICATIONS, SULFA, PENICILLIN, AND LEMON. MEDICATIONS: On [employer] is reviewed. PERSONAL AND SOCIAL HISTORY: She is an ex-smoker. FAMILY HISTORY: Significant for neurological and cardiovascular diseases. PHYSICAL EXAMINATION: GENERAL: Now, the patient is lying comfortable in bed. She is not in acute distress. VITAL SIGNS: The blood pressure is 133/83, pulse is 80, respiration is 12, temperature 97.3, SpO2 94% on 60% oxygen on BiPAP. HEENT: Conjunctivae are pink. Sclerae not icteric. NECK: Neck is supple. There is no elevated JVD. CHEST: There are bilateral crackles, wheeze on forceful expiration. HEART: Rhythm regular, normal sound, no murmur. ABDOMEN: Soft, bowel sounds present. No hepatosplenomegaly. RECTAL: Deferred. CONSULT REPORT [id number] JORDEN AYALA EXTREMITIES: No cyanosis, no clubbing, no pedal edema. CENTRAL NERVOUS SYSTEM: The patient is now awake and alert. There are no obvious cranial nerve abnormality. CHEST RADIOGRAPH: There is bilateral increased interstitial marking. CT scan of the head was unremarkable. LABORATORY DATA: CBC: WBC 6.9, hemoglobin 14.3, hematocrit 46, the platelet count 216. Chemistry: Sodium is 142, potassium 4.8, bicarbonate is 40.8, BUN is 7, creatinine 0.7. ABG: The pH is 7.37, pCO2 is 80.3, the pO2 64, bicarbonate is 43. The ammonia level is 51. IMPRESSION: 1. Acute mental status changes which are multifactorial. 2. Dipuh-cl-lwajxhf hypoxic hypercapnic respiratory failure. 3. Respiratory acidosis. 4. Noncompensated metabolic alkalosis. 5. Chronic interstitial lung disease. 6. Pulmonary edema. 7. Acute exacerbation of chronic obstructive pulmonary disease. 8. Possible bilateral pneumonia. 9. Gastroesophageal reflux disease. RECOMMENDATION: Continue Levaquin, methylprednisolone IV. Start her on lactulose, albuterol and ipratropium nebulizer, Brovana and budesonide nebulizer. DVT prophylaxis, BiPAP, and supplemental oxygen is required. Follow up labs and chest radiograph. Dr. Mcdonald, thank you for involving me in the care of Ms. Ayala. TRANSINT:[id number] Voice Confirmation ID: [id number] DOCUMENT ID: [id number] IAIN LEE MD CC: GUILLERMO MCDONALD [id number] DICTATION DATE: 07/14/171508 VAULT CLERK: 07/14/17 1539 ADM IN [facility] [address] [id number]
--- NOTE | ~2017-07-13 | CN ---
PATIENT NAME:JORDEN AYALA MEDICAL RECORD: [id number] : 67 LOCATION:D. D.2102 ADMIT DATE: 07/13/17 ACCOUNT: [id number] CONSULTING PHYSICIAN: CHIKA STUBBS MD REFERRING PHYSICIAN: GUILLERMO DIANA MD DATE OF CONSULTATION: 07/19/2017 HISTORY OF PRESENT ILLNESS: A 52-year-old female with a history of morbid obesity, obstructive sleep apnea, brought to the hospital with CO2 narcosis, respiratory acidosis. She has been wearing her oxygen regularly. She was noted to be bradycardic. She is on trazodone and beta gretchen, noted to be bradycardic, sinus mechanism. No other abnormalities. We are asked to see her concerning her cardiovascular status. PAST MEDICAL HISTORY: Includes; 1. History of morbid obesity. 2. Obstructive sleep apnea. 3. Chronic pain syndrome. 4. Hypertension. 5. Dyslipidemia. 6. Diabetes mellitus. ALLERGIES: NONSTEROIDALS, SULFA, AND PENICILLIN. MEDICATIONS: Include Opana 40 mg q.12, insulin per scale, Glucophage 500 b.i.d., Carafate 1 g a.c. and at bedtime, Lasix 40 every day, trazodone 150 every day, OxyContin 10 mg q.8, Cymbalta 120 every day, Neurontin 600 t.i.d., Requip 0.5 t.i.d., Toprol 50 at bedtime, atorvastatin 40 at bedtime. SOCIAL HISTORY: Ex-smoker, nondrinker. She is able to take care of her ADLs regularly. REVIEW OF SYSTEMS: The patient reports easy bruising but reports no swollen glands. The patient reports no fever, no night sweats, no significant weight gain, no significant weight loss. No significant exercise tolerance. The patient reports no dry eyes, no irritation, no vision change. Patient reports no difficulty hearing and no ear pain. Patient reports no frequent nose bleeds or nose and sinus problems. Patient reports on arm pain on exertion. No shortness of breath while lying down. No history of heart murmur. Patient reports no cough, no wheezing or coughing up blood. Patient reports no abdominal pain, no vomiting. Normal appetite. No diarrhea and not vomiting blood. No nausea and no constipation. Patient reports no incontinence. No difficulty urinating. No hematuria. No increased frequency. Patient reports no muscle aches. No weakness, no arthralgias, no back pain. No swelling of the extremities. Patient reports no abnormal mole, no jaundice, no rashes. Reports no loss of consciousness. No weakness and no numbness. No seizures, dizziness, or headaches. The patient reports no depression, no sleep disturbance, feeling safe in a relationship and no alcohol abuse. Patient reports on fatigue. Reports no runny nose or sinus pressure. No itching, no hives, and no frequent sneezing. PHYSICAL EXAMINATION: GENERAL: A pleasant female in no acute distress. VITAL SIGNS: Blood pressure 136/71, pulse 74 and regular. HEENT: Normocephalic, atraumatic. CONSULT REPORT [id number] JORDEN AYALA NECK: No bruits noted. HEART: Regular. Heart tones are distant. LUNGS: Actually fairly good air excursion. ABDOMEN: Soft, nontender. EXTREMITIES: Pulses well preserved, 2+. There is no edema. DIAGNOSTIC DATA: ECG shows sinus ligia, incomplete right bundle, no acute ST-T changes. IMPRESSION: Bradycardia. It may be medication related as well as secondary to apnea. We will check echocardiographic study. Given normal KS interval, normal QRS duration, doubt a significant bradyarrhythmias. TRANSINT:[id number] Voice Confirmation ID: [id number] DOCUMENT ID: [id number] CHIKA STUBBS MD at 0847 CC: [id number] DICTATION DATE: 07/19/17 1035 MANAGER TRAINEE: 07/19/17 1420 DIS IN 07/19/17 [address] [id number] [place] [id number]
[2017-07-13 20:11] LABS: BASOPHILS 0.1 % (0-2); EOSINOPHILS 0 % (0-7); HEMOGLOBIN 14.3 g/dL (12-16); IMMATURE GRANULOCYTES 0.1 % (0-5); LYMPHOCYTES 40.7 % (15-50); MCH 30.8 pg (26.0-34.0); MCHC 31.1 g/dL (31.0-37.0); MCV 99.1 fL (80.0-100.0); MEAN PLATELET VOLUME 10.1 fL (7.4-10.4); MONOCYTES 10.9 % (2-11); NEUTROPHILS 48.2 % (40-80); PLATELET COUNT 216 10x3/uL (130-400); RBC 4.64 10x6/uL (4.00-5.40); RDW 16.5 % (11.5-14.5); WBC 6.9 10x3/uL (4.8-10.8)
[2017-07-13 20:19] LABS: ALBUMIN 2.4 g/dL (3.4-5.0); ANION GAP 9.6 mmol/L (8-16); BILIRUBIN - TOTAL 0.3 mg/dL (0.2-1.3); CALCIUM 8.6 mg/dL (8.5-10.1); CREATININE - SERUM 0.9 mg/dL (0.6-1.3); POTASSIUM - SERUM 4.6 mmol/L (3.5-5.1); PROTEIN - SERUM 7.2 g/dL (6.4-8.2)
[2017-07-13 21:42] LABS: APPEARANCE CLEAR (CLEAR); COLOR YELLOW (YELLOW); SPECIFIC GRAVITY 1.015 (1.005-1.020)
[2017-07-13 21:43] LABS: BILIRUBIN NEGATIVE (NEGATIVE); GLUCOSE NEGATIVE (NEGATIVE); KETONE NEGATIVE (NEGATIVE); NITRITE NEGATIVE (NEGATIVE); PROTEIN NEGATIVE (NEGATIVE); UROBILINOGEN NORMAL (NORMAL)
[2017-07-13 23:00] VITALS: BP 137/77
[2017-07-13 23:30] VITALS: BP 139/91; BMI 49.5
[2017-07-14] VITALS (22 sets, daily range): BP systolic 120–142; BP diastolic 71–94; BMI 49.7
[2017-07-14 04:35] LABS: BASOPHILS 0.2 % (0-2); EOSINOPHILS 0 % (0-7); HEMATOCRIT 46.5 % (36.0-48.0); HEMOGLOBIN 13.9 g/dL (12-16); IMMATURE GRANULOCYTES 0.5 % (0-5); LYMPHOCYTES 12.6 % (15-50); MCH 29.8 pg (26.0-34.0); MCHC 29.9 g/dL (31.0-37.0); MCV 99.8 fL (80.0-100.0); MEAN PLATELET VOLUME 10.2 fL (7.4-10.4); MONOCYTES 2.4 % (2-11); NEUTROPHILS 84.3 % (40-80); PLATELET COUNT 203 10x3/uL (130-400); RBC 4.66 10x6/uL (4.00-5.40); RDW 16.2 % (11.5-14.5); WBC 6.6 10x3/uL (4.8-10.8)
[2017-07-14 04:54] LABS: ALBUMIN 2.4 g/dL (3.4-5.0); ALKALINE PHOSPHATASE 70 U/L (46-116); ALT (SGPT) 14 U/L (10-68); BILIRUBIN - TOTAL 0.32 mg/dL (0.2-1.3); CALC OSMOLALITY 283 mosm/kg (275-300); CHLORIDE - SERUM 99 mmol/L (98-107); CREATININE - SERUM 0.7 mg/dL (0.6-1.3); GLUCOSE 150 mg/dL (74-106); POTASSIUM - SERUM 4.8 mmol/L (3.5-5.1); PROTEIN - SERUM 7.4 g/dL (6.4-8.2); SODIUM 142 mmol/L (136-145); UREA NITROGEN 7 mg/dL (7-18); eGFR NON AFRICAN AMERICAN > 90 mL/min (90-120)
[2017-07-14 05:07] LABS: CARBON DIOXIDE 40.8 mmol/L (21.0-32.0)
[2017-07-15] VITALS (24 sets, daily range): BP systolic 105–154; BP diastolic 62–90; Ht 165.1 cm; Wt 102.8 kg
[2017-07-15 04:41] LABS: BASOPHILS 0 % (0-2); EOSINOPHILS 0 % (0-7); HEMATOCRIT 43.9 % (36.0-48.0); HEMOGLOBIN 13.5 g/dL (12-16); IMMATURE GRANULOCYTES 0.1 % (0-5); LYMPHOCYTES 11.1 % (15-50); MCHC 30.8 g/dL (31.0-37.0); MEAN PLATELET VOLUME 10.3 fL (7.4-10.4); NEUTROPHILS 85.8 % (40-80); PLATELET COUNT 227 10x3/uL (130-400); RDW 15.3 % (11.5-14.5)
[2017-07-15 04:44] LABS: MCV 97.6 fL (80.0-100.0); WBC 8.3 10x3/uL (4.8-10.8)
[2017-07-15 04:49] LABS: CALC OSMOLALITY 281 mosm/kg (275-300); CALCIUM 9.2 mg/dL (8.5-10.1); CARBON DIOXIDE 32.7 mmol/L (21.0-32.0); CHLORIDE - SERUM 100 mmol/L (98-107); CREATININE - SERUM 0.8 mg/dL (0.6-1.3); GLUCOSE 166 mg/dL (74-106); MAGNESIUM - SERUM 1.9 mg/dL (1.8-2.4); POTASSIUM - SERUM 4.1 mmol/L (3.5-5.1); SODIUM 140 mmol/L (136-145); eGFR NON AFRICAN AMERICAN 80 mL/min (90-120)
[2017-07-15 04:52] LABS: UREA NITROGEN 10 mg/dL (7-18)
[2017-07-16] VITALS (21 sets, daily range): BP systolic 120–157; BP diastolic 69–90
[2017-07-16 04:05] LABS: BASOPHILS 0 % (0-2); EOSINOPHILS 0 % (0-7); HEMATOCRIT 43.5 % (36.0-48.0); HEMOGLOBIN 13.6 g/dL (12-16); IMMATURE GRANULOCYTES 0.1 % (0-5); LYMPHOCYTES 10.7 % (15-50); MCH 29.9 pg (26.0-34.0); MCHC 31.3 g/dL (31.0-37.0); MEAN PLATELET VOLUME 10.7 fL (7.4-10.4); MONOCYTES 2.9 % (2-11); NEUTROPHILS 86.3 % (40-80); PLATELET COUNT 212 10x3/uL (130-400); RBC 4.55 10x6/uL (4.00-5.40); WBC 8.8 10x3/uL (4.8-10.8)
[2017-07-16 04:11] LABS: MCV 95.6 fL (80.0-100.0)
[2017-07-16 04:25] LABS: ANION GAP 14.2 mmol/L (8-16); CALCIUM 9.1 mg/dL (8.5-10.1); CARBON DIOXIDE 28.9 mmol/L (21.0-32.0); POTASSIUM - SERUM 4.1 mmol/L (3.5-5.1)
[2017-07-17] VITALS (15 sets, daily range): BP systolic 125–167; BP diastolic 63–88
[2017-07-17 05:32] LABS: BASOPHILS 0 % (0-2); EOSINOPHILS 0 % (0-7); HEMATOCRIT 44.1 % (36.0-48.0); HEMOGLOBIN 14.1 g/dL (12-16); IMMATURE GRANULOCYTES 0.1 % (0-5); LYMPHOCYTES 17.2 % (15-50); MCH 29.6 pg (26.0-34.0); MEAN PLATELET VOLUME 10.5 fL (7.4-10.4); MONOCYTES 6.5 % (2-11); NEUTROPHILS 76.2 % (40-80); PLATELET COUNT 242 10x3/uL (130-400); RBC 4.77 10x6/uL (4.00-5.40); RDW 14.7 % (11.5-14.5); WBC 7.9 10x3/uL (4.8-10.8)
[2017-07-17 05:38] LABS: ANION GAP 13.8 mmol/L (8-16); CARBON DIOXIDE 27.2 mmol/L (21.0-32.0)
[2017-07-17 05:40] LABS: MCV 92.5 fL (80.0-100.0)
[2017-07-18 00:38] VITALS: BP 156/72
[2017-07-18 04:00] VITALS: BP 156/77
[2017-07-18 04:49] LABS: BASOPHILS 0 % (0-2); EOSINOPHILS 0 % (0-7); HEMATOCRIT 47.4 % (36.0-48.0); HEMOGLOBIN 15.7 g/dL (12-16); IMMATURE GRANULOCYTES 0.1 % (0-5); MCH 29.9 pg (26.0-34.0); MCHC 33.1 g/dL (31.0-37.0); MEAN PLATELET VOLUME 10.3 fL (7.4-10.4); MONOCYTES 6.8 % (2-11); NEUTROPHILS 72.1 % (40-80); PLATELET COUNT 241 10x3/uL (130-400); RBC 5.25 10x6/uL (4.00-5.40); RDW 14.4 % (11.5-14.5); WBC 7.9 10x3/uL (4.8-10.8)
[2017-07-18 05:05] LABS: MCV 90.3 fL (80.0-100.0)
[2017-07-18 05:11] LABS: ANION GAP 14.4 mmol/L (8-16); CALCIUM 9.1 mg/dL (8.5-10.1); CARBON DIOXIDE 26.4 mmol/L (21.0-32.0); CREATININE - SERUM 0.9 mg/dL (0.6-1.3); MAGNESIUM - SERUM 2.3 mg/dL (1.8-2.4); POTASSIUM - SERUM 3.8 mmol/L (3.5-5.1)
[2017-07-18 08:04] VITALS: BP 141/76
[2017-07-18 11:22] VITALS: BP 148/74
[2017-07-18 15:55] VITALS: BP 145/55
[2017-07-18 20:53] VITALS: BP 138/60
[2017-07-19 00:58] VITALS: BP 129/71
[2017-07-19 04:54] VITALS: BP 146/79
[2017-07-19 04:59] LABS: BASOPHILS 0 % (0-2); EOSINOPHILS 0 % (0-7); HEMATOCRIT 51.6 % (36.0-48.0); HEMOGLOBIN 17.4 g/dL (12-16); IMMATURE GRANULOCYTES 0.5 % (0-5); MCH 30.2 pg (26.0-34.0); MCHC 33.7 g/dL (31.0-37.0); MCV 89.4 fL (80.0-100.0); MEAN PLATELET VOLUME 9.8 fL (7.4-10.4); MONOCYTES 8.7 % (2-11); NEUTROPHILS 54.8 % (40-80); PLATELET COUNT 200 10x3/uL (130-400); RBC 5.77 10x6/uL (4.00-5.40); RDW 14.2 % (11.5-14.5)
[2017-07-19 05:05] LABS: WBC 12.8 10x3/uL (4.8-10.8)
[2017-07-19 05:09] LABS: ANION GAP 13.4 mmol/L (8-16); CALCIUM 9.3 mg/dL (8.5-10.1); CARBON DIOXIDE 28.9 mmol/L (21.0-32.0); MAGNESIUM - SERUM 2.3 mg/dL (1.8-2.4); POTASSIUM - SERUM 3.3 mmol/L (3.5-5.1)
[2017-07-19 08:03] VITALS: BP 136/71
[2017-07-19] MEDS ORDERED: LEVAQUIN750 MG PO (11:08)
[2017-07-19 12:21] VITALS: BP 136/68
== END 2017-07-19 13:59 | disposition home health service (06) | DRG 193 ==
LOC: D.ER 19:52 → D.ICU 22:27 → D.M2 22:27
PROVIDERS: Family Medicine; Internal Medicine Pulmonary Disease
PROC: 5A09357 Assistance with Respiratory Ventilation, Less than 24 Consecutive Hours, Continuous Positive Airway Pressure (ICD-10-PCS; principal; 2017-07-13)
DX: J18.9 Pneumonia, unspecified organism (principal); J96.21 Acute and chronic respiratory failure with hypoxia; J96.22 Acute and chronic respiratory failure with hypercapnia; E87.4 Mixed disorder of acid-base balance; J81.1 Chronic pulmonary edema; J44.1 Chronic obstructive pulmonary disease with (acute) exacerbation; J84.9 Interstitial pulmonary disease, unspecified; R41.82 Altered mental status, unspecified; K21.9 Gastro-esophageal reflux disease without esophagitis; F41.8 Other specified anxiety disorders; E66.01 Morbid (severe) obesity due to excess calories; I10 Essential (primary) hypertension; Z99.81 Dependence on supplemental oxygen; E11.9 Type 2 diabetes mellitus without complications; Z86.73 Personal history of transient ischemic attack (TIA), and cerebral infarction without residual deficits; F43.10 Post-traumatic stress disorder, unspecified

== ENCOUNTER → 2017-08-04 19:07 | Outpatient (CLI) | payer MEDICARE ==
[2017-07-15 20:33] VITALS: BMI 49.7
== END | disposition home or self-care (01) ==
LOC: D.SLEEP 19:07
DX: G47.36 Sleep related hypoventilation in conditions classified elsewhere (principal)

== ENCOUNTER 2018-03-30 19:10 | Emergency (ER) | payer MEDICARE ==
[2018-03-30 19:33] VITALS: Ht 165.1 cm
[2018-03-30 20:11] LABS: BASOPHILS 0.2 % (0-2); EOSINOPHILS 0 % (0-7); HEMATOCRIT 46.2 % (36.0-48.0); HEMOGLOBIN 14.8 g/dL (12-16); IMMATURE GRANULOCYTES 0.1 % (0-5); MCH 29.8 pg (26.0-34.0); MEAN PLATELET VOLUME 10.2 fL (7.4-10.4); MONOCYTES 11.2 % (2-11); NEUTROPHILS 59.5 % (40-80); RBC 4.97 10x6/uL (4.00-5.40); RDW 17.4 % (11.5-14.5)
[2018-03-30 20:13] LABS: PLATELET COUNT 244 10x3/uL (130-400)
[2018-03-30 20:18] LABS: APTT 32.1 SECONDS (22.8-39.4); INR 1.01 (0.85-1.17); PROTIME 12.8 SECONDS (11.6-15.0)
[2018-03-30 20:30] LABS: ALBUMIN 2.6 g/dL (3.4-5.0); ALKALINE PHOSPHATASE 69 U/L (46-116); ALT (SGPT) 12 U/L (10-68); BILIRUBIN - TOTAL 0.36 mg/dL (0.2-1.3); CALC OSMOLALITY 280 mosm/kg (275-300); CALCIUM 8.5 mg/dL (8.5-10.1); CHLORIDE - SERUM 95 mmol/L (98-107); CREATININE - SERUM 0.8 mg/dL (0.6-1.3); GLUCOSE 96 mg/dL (74-106); POTASSIUM - SERUM 3.3 mmol/L (3.5-5.1); PROTEIN - SERUM 7.5 g/dL (6.4-8.2); SODIUM 142 mmol/L (136-145); UREA NITROGEN 7 mg/dL (7-18); eGFR NON AFRICAN AMERICAN 80 mL/min (90-120)
[2018-03-30 20:37] LABS: CKMB 0.4 U/L (0.0-3.6); CREATINE KINASE 38 UL (21-215); MAGNESIUM - SERUM 1.8 mg/dL (1.8-2.4); THYROID STIMULATING HORMONE 3.86 uIU/mL (0.36-3.74)
[2018-03-30 20:38] LABS: TROPONIN-I < 0.017 ng/mL (0.000-0.060)
[2018-03-30 22:09] LABS: APPEARANCE CLEAR (CLEAR); BACTERIA FEW /hpf (NONE SEEN); BILIRUBIN NEGATIVE (NEGATIVE); COLOR YELLOW (YELLOW); GLUCOSE NEGATIVE (NEGATIVE); KETONE NEGATIVE (NEGATIVE); NITRITE NEGATIVE (NEGATIVE); PROTEIN NEGATIVE (NEGATIVE); RED CELLS - URINE OCC /hpf (0-5); SPECIFIC GRAVITY 1.005 (1.005-1.020); UROBILINOGEN NORMAL (NORMAL); WHITE CELLS - URINE 0-5 /hpf (0-5)
[2018-03-30 22:20] LABS: UDS - AMPHET NEGATIVE QUAL (NEGATIVE); UDS - BARB NEGATIVE QUAL (NEGATIVE); UDS - BENZO POSITIVE QUAL (NEGATIVE); UDS - COCAINE NEGATIVE QUAL (NEGATIVE); UDS - OPIATE POSITIVE QUAL (NEGATIVE); UDS - PCP NEGATIVE QUAL (NEGATIVE); UDS - THC NEGATIVE QUAL (NEGATIVE)
[2018-03-31 00:52] VITALS: BP 129/63
== END 2018-03-31 00:56 | disposition short-term general hospital (02) ==
LOC: D.ER 19:10
PROVIDERS: Family Medicine
DX: I63.9 Cerebral infarction, unspecified (principal); G81.91 Hemiplegia, unspecified affecting right dominant side; R47.81 Slurred speech; E11.9 Type 2 diabetes mellitus without complications; E87.6 Hypokalemia; J44.9 Chronic obstructive pulmonary disease, unspecified; Z99.81 Dependence on supplemental oxygen; I10 Essential (primary) hypertension

== ENCOUNTER 2018-07-09 09:00 | Outpatient (CLI) | payer MEDICARE ==
[2018-03-30 19:33] VITALS: BMI 49.7
== END 2018-07-09 10:00 | disposition home or self-care (01) ==
LOC: D.MAMMO 09:00
PROVIDERS: ATTEND Family Medicine
DX: Z12.31 Encounter for screening mammogram for malignant neoplasm of breast (principal)

== ENCOUNTER 2018-10-20 16:58 | Inpatient (IN) | payer MEDICARE ==
[~2018-10-20] VITALS: Ht 165.1 cm; Wt 131.8 kg
[2018-10-20 17:32] LABS: BASOPHILS 0.1 % (0-2); EOSINOPHILS 0 % (0-7); HEMATOCRIT 42.5 % (36.0-48.0); HEMOGLOBIN 13.2 g/dL (12-16); IMMATURE GRANULOCYTES 0.3 % (0-5); LYMPHOCYTES 44.7 % (15-50); MCH 29.1 pg (26.0-34.0); MCHC 31.1 g/dL (31.0-37.0); MCV 93.8 fL (80.0-100.0); MEAN PLATELET VOLUME 9.6 fL (7.4-10.4); MONOCYTES 8.9 % (2-11); RBC 4.53 10x6/uL (4.00-5.40); RDW 17.5 % (11.5-14.5); WBC 7.4 10x3/uL (4.8-10.8)
[2018-10-20 17:39] LABS: PLATELET COUNT 182 10x3/uL (130-400)
[2018-10-20] MEDS ORDERED: GLUCOPHAGE1000 MG PO (17:50)
[2018-10-20 17:53] LABS: APTT 30.6 SECONDS (22.8-39.4); PROTIME 12.7 SECONDS (11.6-15.0)
--- NOTE | 2018-10-20 17:54 | NUR ---
URINE SAMPLE SENT TO LAB AT THIS TIME.
[2018-10-20] MEDS ORDERED: LEVEMIR IN100 UNITS/ SC (17:57)
[2018-10-20 17:58] LABS: ALBUMIN 2.7 g/dL (3.4-5.0); ALKALINE PHOSPHATASE 76 U/L (46-116); ALT (SGPT) 16 U/L (10-68); BILIRUBIN - TOTAL 0.35 mg/dL (0.2-1.3); CALC OSMOLALITY 284 mosm/kg (275-300); CALCIUM 8.7 mg/dL (8.5-10.1); CARBON DIOXIDE 37.4 mmol/L (21.0-32.0); CHLORIDE - SERUM 99 mmol/L (98-107); CREATININE - SERUM 0.9 mg/dL (0.6-1.3); GLUCOSE 77 mg/dL (74-106); POTASSIUM - SERUM 3.8 mmol/L (3.5-5.1); PROTEIN - SERUM 7.4 g/dL (6.4-8.2); SODIUM 144 mmol/L (136-145); UREA NITROGEN 11 mg/dL (7-18); eGFR NON AFRICAN AMERICAN 70 mL/min (90-120)
[2018-10-20] MEDS ORDERED: AMITIZA24 MCG PO (17:58)
--- NOTE | 2018-10-20 17:58 | NUR ---
PT OUT OF THE ED AT THIS TIME FOR ORDERED CT SCAN, TRANSPORTED VIA STRETCHER.
[2018-10-20] MEDS ORDERED: BREO ELLIPTA 21 EACH (17:59)
[2018-10-20] MEDS ORDERED: DEPAKOTE ER500 MG PO (18:02)
[2018-10-20] MEDS ORDERED: EMBEDA ER 50-21 EACH PO (18:04)
[2018-10-20 18:07] LABS: CKMB 0.6 U/L (0.0-3.6); CREATINE KINASE 66 UL (21-215); MAGNESIUM - SERUM 1.8 mg/dL (1.8-2.4); THYROID STIMULATING HORMONE 2.71 uIU/mL (0.36-3.74)
[2018-10-20] MEDS ORDERED: NEURONTIN800 MG PO (18:08)
--- NOTE | 2018-10-20 18:08 | NUR ---
PT RETURNED TO THE ED AT THIS TIME.
[2018-10-20 18:09] LABS: TROPONIN-I < 0.017 ng/mL (0.000-0.060)
[2018-10-20] MEDS ORDERED: IPRAT-ALBUT 0.5-3 ML UPD (18:11)
[2018-10-20 18:24] LABS: APPEARANCE HAZY (CLEAR); BILIRUBIN NEGATIVE (NEGATIVE); COLOR YELLOW (YELLOW); GLUCOSE NEGATIVE (NEGATIVE); KETONE NEGATIVE (NEGATIVE); NITRITE POSITIVE (NEGATIVE); PROTEIN NEGATIVE (NEGATIVE); UROBILINOGEN NORMAL (NORMAL)
[2018-10-20 18:25] LABS: BACTERIA MANY /hpf (NONE SEEN); EPITHELIAL CELLS 0-5 /hpf (0-5); RED CELLS - URINE 0-5 /hpf (0-5)
[2018-10-20 18:32] LABS: UDS - AMPHET NEGATIVE QUAL (NEGATIVE); UDS - BARB NEGATIVE QUAL (NEGATIVE); UDS - BENZO POSITIVE QUAL (NEGATIVE); UDS - COCAINE NEGATIVE QUAL (NEGATIVE); UDS - OPIATE POSITIVE QUAL (NEGATIVE); UDS - PCP NEGATIVE QUAL (NEGATIVE); UDS - THC NEGATIVE QUAL (NEGATIVE)
--- NOTE | 2018-10-20 19:00 | NUR ---
PER EDP DR. FRANCO, STOP NARCAN INFUSION.
--- NOTE | 2018-10-20 19:02 | NUR ---
HAND OFF REPORT GIVEN TO SHANELL MARLEY
[2018-10-20 19:55] VITALS: BP 115/59
--- NOTE | 2018-10-20 20:20 | NUR ---
ROCEPHIN INFUSION COMPLETE AT THIS TIME
[2018-10-20 22:39] VITALS: BP 119/64
[2018-10-21 05:31] VITALS: BP 119/64; Ht 165.1 cm; Wt 131.8 kg
[2018-10-21 05:36] VITALS: BP 124/60
[2018-10-21 06:46] LABS: BASOPHILS 0.2 % (0-2); EOSINOPHILS 0 % (0-7); HEMATOCRIT 41.4 % (36.0-48.0); HEMOGLOBIN 12.7 g/dL (12-16); IMMATURE GRANULOCYTES 0.2 % (0-5); LYMPHOCYTES 43.5 % (15-50); MCH 28.8 pg (26.0-34.0); MCHC 30.7 g/dL (31.0-37.0); MCV 93.9 fL (80.0-100.0); MEAN PLATELET VOLUME 9.7 fL (7.4-10.4); MONOCYTES 7.8 % (2-11); NEUTROPHILS 48.3 % (40-80); PLATELET COUNT 183 10x3/uL (130-400); RBC 4.41 10x6/uL (4.00-5.40); RDW 17.5 % (11.5-14.5); WBC 5.9 10x3/uL (4.8-10.8)
[2018-10-21 06:58] LABS: CALC OSMOLALITY 287 mosm/kg (275-300); CALCIUM 8.8 mg/dL (8.5-10.1); CHLORIDE - SERUM 101 mmol/L (98-107); CREATININE - SERUM 0.8 mg/dL (0.6-1.3); GLUCOSE 88 mg/dL (74-106); MAGNESIUM - SERUM 2.2 mg/dL (1.8-2.4); PHOSPHOROUS 5.2 mg/dL (2.5-4.9); SODIUM 145 mmol/L (136-145); UREA NITROGEN 13 mg/dL (7-18); eGFR NON AFRICAN AMERICAN 80 mL/min (90-120)
[2018-10-21 07:04] LABS: CARBON DIOXIDE 42.5 mmol/L (21.0-32.0)
--- NOTE | 2018-10-21 07:45 | NUR ---
AWAKE AND ALERT. ORIENTED X3. NO C/O AT THIS TIME EXCEPT FOR HEADACHE. WILL SEE WHAT SHE HAS ORDERED. LUNGS ARE CLEAR BILATERALLY, NO COUGH NOTED. SKIN IS INTACT WITHOUT REDNESS. SL TO RIGHT HAND IS PATENT WITHOUT REDNESS AT INSERTION SITE. DENIES NEEDS.
--- NOTE | 2018-10-21 08:05 | NUR ---
GIVEN 500 MG TYLENOL PO FOR C/O HEADACHE. WILL MONITOR.
[2018-10-21 09:01] VITALS: BP 139/77
[2018-10-21 12:48] VITALS: BP 128/71
--- NOTE | 2018-10-21 16:45 | NUR ---
FSBS 236. GIVEN 8 UNITS HUMALOG SUBQ PER SS. DENIES NEEDS. NO CHANGES NOTED.
[2018-10-21 16:51] VITALS: BP 121/73
[2018-10-21 21:43] VITALS: BP 130/68
[2018-10-22 01:28] VITALS: BP 119/56
[2018-10-22 04:59] VITALS: BP 94/54
[2018-10-22 07:24] LABS: BASOPHILS 0.2 % (0-2); EOSINOPHILS 0 % (0-7); HEMATOCRIT 39.5 % (36.0-48.0); HEMOGLOBIN 12.1 g/dL (12-16); IMMATURE GRANULOCYTES 0.2 % (0-5); LYMPHOCYTES 45.1 % (15-50); MCH 28.7 pg (26.0-34.0); MCHC 30.6 g/dL (31.0-37.0); MCV 93.8 fL (80.0-100.0); MEAN PLATELET VOLUME 10.2 fL (7.4-10.4); MONOCYTES 10.1 % (2-11); NEUTROPHILS 44.4 % (40-80); PLATELET COUNT 174 10x3/uL (130-400); RBC 4.21 10x6/uL (4.00-5.40); RDW 17.4 % (11.5-14.5); WBC 5.4 10x3/uL (4.8-10.8)
[2018-10-22 07:40] LABS: CALCIUM 8.8 mg/dL (8.5-10.1); CHLORIDE - SERUM 100 mmol/L (98-107); CREATININE - SERUM 0.8 mg/dL (0.6-1.3); MAGNESIUM - SERUM 2.4 mg/dL (1.8-2.4); PHOSPHOROUS 4.1 mg/dL (2.5-4.9); SODIUM 144 mmol/L (136-145); UREA NITROGEN 13 mg/dL (7-18); VALPROIC ACID (DEPAKOTE) 16.9 ug/mL (50.0-100.0); eGFR NON AFRICAN AMERICAN 80 mL/min (90-120)
[2018-10-22 07:42] LABS: CALC OSMOLALITY 288 mosm/kg (275-300); GLUCOSE 134 mg/dL (74-106); POTASSIUM - SERUM 3.3 mmol/L (3.5-5.1)
[2018-10-22 07:43] LABS: CARBON DIOXIDE 40.9 mmol/L (21.0-32.0)
--- NOTE | 2018-10-22 07:46 | NUR ---
AWAKE AND ALERT. ORIENTED X3. NO C/O AT THIS TIME. FAINT WHEEZES NOTED TO BILATERAL LOWER LOBES, NON PRODUCTIVE COUGH REPORTED. WILL MONITOR. SKIN IS INTACT WITHOUT REDNESS. IV TO RIGHT HAND IS PATENT WITHOUT REDNESS AT INSERTION SITE. REPORTS GOOD PAIN CONTROL WITH USE OF COMPUTER TRAINER. FAMILY AT BEDSIDE. DENIES NEEDS. SCD'S IN PLACE.
[2018-10-22 09:01] VITALS: BP 116/60
--- NOTE | 2018-10-22 10:00 | NUR ---
ATE MOST OF BREAKFAST. DENIES NEEDS. TOOK AM MEDS WITHOUT DIFFICUTLY.
--- NOTE | 2018-10-22 12:00 | NUR ---
FSBS 138. NO COVERAGE NECESSARY. PERSONAL ATTENDANT DISCONTINUED AT THIS TIME. INSTRUCTED IN USE OF SCHEDULED OXY. WILL MONITOR.
--- NOTE | 2018-10-22 13:00 | NUR ---
RESTING QUIETLY IN BED. ATE ALL OF LUNCH. DENIES NEEDS.
[2018-10-22 13:26] VITALS: BP 115/72
--- NOTE | 2018-10-22 17:00 | NUR ---
FSBS 169. GIVNE 2 UNITS SUBQ PER SS. DENIES NEEDS.
--- NOTE | 2018-10-22 17:16 | MORECARE ---
CASE MANAGEMENT DISCHARGE SUMMARY PATIENT: JORDEN AYALA ANN UNIT: [id number] ADM DATE: 10/20/18 AGE: 53 : 67 SEX: F ROOM/BED: D.2233 AUTHOR: JENNIFER STANFORD PHYSICIAN: REFERRING PHYSICIAN: KEENA CLEANING DO DATE OF SERVICE: 10/22/18 Discharge Plan Patient Name: JORDEN AYALA Facility: [facility]:[place] : 1965 Planned Disposition: Home Anticipated Discharge Date: Discharge Date: Expected LOS: Initial Reviewer: [email or web address] Initial Review Date: 10/20/2018 Generated: 10/22/18 6:16 pm Comments DCP- Discharge Planning Updated by [email or web address]: Cynthia Graham on 10/22/18 4:[address] Patient Name: JORDEN AYALA Admission Status: ER Accout number: [id number] Admission Date: 10-20-2018 : 1965 Admission Diagnosis: Attending: KEENA CLEANING Current LOS: 2 Anticipated DC Date: Planned Disposition: Home Primary Insurance: [facility] [employer] Discharge Planning Comments: CM MET WITH PATIENT ABOUT DC PLANNING NEEDS. STATES PLANS TO DC TO HOME WITH . HAS DME AT HOME. NO NEEDS. CM TO FOLLOW AND ASSIST NEEDED. Manager Hardware: Cynthia Graham DCPIA - Discharge Planning Initial Assessment Updated by [email or web address]: Cynthia Graham on 10/22/18 5:10 pm * Is the patient Alert and Oriented? Yes * PCP LAURO * Pharmacy [facility] * Preadmission Environment Home with Family * Other Equipment CPAP, WALKER * Additional services required to return to the preadmission environment? No * Can the patient safely return to the preadmission environment? Yes Patient Name: JORDEN AYALA Page [phone] at 1716 All edits/amendments must be made on the electronic document DICTATION DATE: 10/22/181715 WOOD WINDOW AND DOOR CRAFTSMAN: PRINCESS 10/22/181715 RPT#: [id number] DC DATE: STATUS: ADM IN [facility] [address] [place] [address] END OF REPORT
--- NOTE | 2018-10-22 19:05 | NUR ---
ATE ALL OF SUPPER. HAS BEEN UP TO BR PER SELF. DENIES NEEDS. NO CHANGES NOTED.
[2018-10-22 20:40] VITALS: BP 105/50
[2018-10-23 00:19] VITALS: BP 122/60
[2018-10-23 04:50] VITALS: BP 129/66
[2018-10-23 06:41] LABS: BASOPHILS 0.2 % (0-2); EOSINOPHILS 0 % (0-7); HEMOGLOBIN 12.5 g/dL (12-16); LYMPHOCYTES 36.9 % (15-50); MCH 28.6 pg (26.0-34.0); MCHC 30.5 g/dL (31.0-37.0); MCV 93.8 fL (80.0-100.0); MEAN PLATELET VOLUME 9.8 fL (7.4-10.4); MONOCYTES 9.6 % (2-11); NEUTROPHILS 53.3 % (40-80); PLATELET COUNT 188 10x3/uL (130-400); RBC 4.37 10x6/uL (4.00-5.40); RDW 17.3 % (11.5-14.5); WBC 5.6 10x3/uL (4.8-10.8)
[2018-10-23 07:08] LABS: ANION GAP 7.2 mmol/L (8-16); CALCIUM 8.6 mg/dL (8.5-10.1); CARBON DIOXIDE 39.4 mmol/L (21.0-32.0); CREATININE - SERUM 0.9 mg/dL (0.6-1.3); MAGNESIUM - SERUM 2.4 mg/dL (1.8-2.4); PHOSPHOROUS 3.4 mg/dL (2.5-4.9); POTASSIUM - SERUM 3.6 mmol/L (3.5-5.1)
[2018-10-23 08:58] VITALS: BP 115/63
--- NOTE | 2018-10-23 10:07 | NUR ---
PATIENT SB PER SOLE ROUNDING MACHINE OPERATOR PT IS RUNNING 36 CHECKED O2 AND HR AND PT IS RUNNING BETWEEN 43-53 CALLED AND RELAYED MESSAGE TO NURSE PRACTITIONER SHAN. ADMINISTERED PRN TYLENOL FOR RIOS, WILL CONTINUE TO MONITOR
--- NOTE | 2018-10-23 11:29 | NUR ---
PT HR IS NOW BETWEEN 60-65 CONTINUE TO MONITOR, PT STATES PAIN IS AT 11 FROM 0-10 IN HEAD WILL ADMINISTER PAIN MEDICATION WELL MEDS FOR NAUSEA. CONTINUE WITH PLAN OF CARE
[2018-10-23] MEDS ORDERED: NEURONTIN 300300 MG PO (11:45)
[2018-10-23] MEDS ORDERED: OMNICEF300 MG PO (11:47)
[2018-10-23 12:35] VITALS: BP 118/69
--- NOTE | 2018-10-23 14:19 | NUR ---
PT WALKED OUT OF ROOM TO OTHER SIDE OF WELDON ACROSS FROM ROOM AND DID WELL, WENT OVER DC PAPERS AND FOLLOW UP INFORMATION, CONTINUE WITH PLAN OF CARE
--- NOTE | 2018-10-28 08:23 | MORECARE ---
CASE MANAGEMENT DISCHARGE SUMMARY PATIENT: JORDEN AYALA ANN UNIT: [id number] ADM DATE: 10/20/18 AGE: 53 : 67 SEX: F ROOM/BED: D.2233 AUTHOR: JENNIFER STANFORD PHYSICIAN: REFERRING PHYSICIAN: KEENA CLEANING DO DATE OF SERVICE: 10/28/18 Discharge Plan Patient Name: JORDEN AYALA Facility: [facility]:[place] : 1965 Planned Disposition: Home Anticipated Discharge Date: Discharge Date: 10/23/2018 Expected LOS: 0 Initial Reviewer: [email or web address] Initial Review Date: 10/20/2018 Generated: 10/28/18 9:23 am Comments DCP- Discharge Planning Updated by [email or web address]: Cynthia Graham on 10/22/18 4:[address] Patient Name: JORDEN AYALA Admission Status: ER Accout number: [id number] Admission Date: 10-20-2018 : 1965 Admission Diagnosis: Attending: KEENA CLEANING Current LOS: 2 Anticipated DC Date: Planned Disposition: Home Primary Insurance: [facility] MEDICARE SOLUTIONS Discharge Planning Comments: CM MET WITH PATIENT ABOUT DC PLANNING NEEDS. STATES PLANS TO DC TO HOME WITH . HAS DME AT HOME. NO NEEDS. CM TO FOLLOW AND ASSIST NEEDED. Cartography Professor: Cynthia Graham DCPIA - Discharge Planning Initial Assessment Updated by [email or web address]: Cynthia Graham on 10/22/18 5:10 pm * Is the patient Alert and Oriented? Yes * PCP LAURO * Pharmacy [facility] * Preadmission Environment Home with Family * Other Equipment CPAP, WALKER * Additional services required to return to the preadmission environment? No * Can the patient safely return to the preadmission environment? Yes Last DP export: 10/22/18 4:16 p Patient Name: JORDEN AYALA Page [phone] at 0823 All edits/amendments must be made on the electronic document DICTATION DATE: 10/28/18822 BUNG SEWER: PRINCESS 10/28/18822 RPT#: [id number] DC DATE:10/23/18 STATUS: DIS IN [facility] [address] [place] [address] END OF REPORT
== END 2018-10-23 15:15 | disposition home or self-care (01) | DRG 896 ==
LOC: D.ER 16:58 → D.MS 18:52 → D.M2 18:52 → D.MS 10-23 15:15
PROVIDERS: Family Medicine; ADMIT Family Medicine; ATTEND Family Medicine
DX: F11.129 Opioid abuse with intoxication, unspecified (principal); G92 Toxic encephalopathy; N39.0 Urinary tract infection, site not specified; Z68.42 Body mass index [BMI] 45.0-49.9, adult; B96.20 Unspecified Escherichia coli [E. coli] as the cause of diseases classified elsewhere; G89.29 Other chronic pain; G47.33 Obstructive sleep apnea (adult) (pediatric); J44.9 Chronic obstructive pulmonary disease, unspecified; I10 Essential (primary) hypertension; E11.9 Type 2 diabetes mellitus without complications; F43.10 Post-traumatic stress disorder, unspecified; F41.8 Other specified anxiety disorders; K21.9 Gastro-esophageal reflux disease without esophagitis; E78.5 Hyperlipidemia, unspecified; M19.90 Unspecified osteoarthritis, unspecified site; E66.01 Morbid (severe) obesity due to excess calories

== ENCOUNTER 2019-06-10 15:34 | Inpatient (IN) | payer MEDICARE ==
[~2019-06-10] VITALS: Ht 165.1 cm; Wt 93.2 kg
[~2019-06-10 15:34] MED LIST changes: +AMITIZA24 MCG PO; +BREO ELLIPTA 21 EACH; +DEPAKOTE ER500 MG PO; +EMBEDA ER 50-21 EACH PO; +IPRAT-ALBUT 0.5-3 ML UPD; +LEVEMIR IN100 UNITS/ SC; +NEURONTIN 300300 MG PO; +NEURONTIN800 MG PO; +OMNICEF300 MG PO; +TRAZODONE HCL150 MG PO; -TRAZODONE HCL50 MG PO
[2019-06-10 16:33] LABS: BASOPHILS 0.1 % (0-2); EOSINOPHILS 0 % (0-7); HEMATOCRIT 38.1 % (36.0-48.0); IMMATURE GRANULOCYTES 0.5 % (0-5); LYMPHOCYTES 21.9 % (15-50); MCH 28.3 pg (26.0-34.0); MCHC 28.9 g/dL (31.0-37.0); MCV 97.9 fL (80.0-100.0); MONOCYTES 6.4 % (2-11); NEUTROPHILS 71.1 % (40-80); RBC 3.89 10x6/uL (4.00-5.40); RDW 19.8 % (11.5-14.5)
[2019-06-10 16:34] LABS: PLATELET COUNT 290 10x3/uL (130-400)
[2019-06-10 16:42] LABS: ANION GAP 17.4 mmol/L (8-16); CALCIUM 8.2 mg/dL (8.5-10.1); CARBON DIOXIDE 24.2 mmol/L (21.0-32.0); CREATININE - SERUM 4.2 mg/dL (0.6-1.3); POTASSIUM - SERUM 4.6 mmol/L (3.5-5.1)
[2019-06-10 16:48] LABS: ALBUMIN 2.4 g/dL (3.4-5.0); BILIRUBIN - TOTAL 0.43 mg/dL (0.2-1.3); PROTEIN - SERUM 7.6 g/dL (6.4-8.2)
[2019-06-10 17:00] VITALS: BP 143/54
--- NOTE | 2019-06-10 17:05 | NUR ---
LAB GLUCOSE 78 DR NOTIFIED. ONE AMP D50 GIVEN ORDERED. PATIENT RESTING WITH EYES CLOSED AWAKENS EASILY.
[2019-06-10 17:06] LABS: BILIRUBIN NEGATIVE (NEGATIVE); GLUCOSE NEGATIVE (NEGATIVE); KETONE NEGATIVE (NEGATIVE); NITRITE NEGATIVE (NEGATIVE); UROBILINOGEN NORMAL (NORMAL)
[2019-06-10 17:07] LABS: BACTERIA MANY /hpf (NEGATIVE); EPITHELIAL CELLS 0-5 /hpf (0-5); RED CELLS - URINE 0-5 /hpf (0-5); WHITE CELLS - URINE >50 /hpf (NEGATIVE)
--- NOTE | 2019-06-10 17:36 | NUR ---
REPEAT BS 158
--- NOTE | 2019-06-10 19:00 | NUR ---
REPORT RECEIVED. BEDSIDE SHIFT REPORT COMPLETE. PT LETHARGIC, EASY TO AROUSE BUT FALLS BACK ASLEEP MID CONVERSATION. RR EVEN AND UNLABORED. NO S/SX OF DISTRESS OBSERVED. CALL LIGHT IN REACH. WILL CTM.
[2019-06-10 20:00] VITALS: BP 88/42
--- NOTE | 2019-06-10 23:30 | NUR ---
BLADDER SCAN COMPLETE. 26ML NOTED. PT VOIDING, BUT IS INCONT.
[2019-06-11] VITALS (21 sets, daily range): BP systolic 77–117; BP diastolic 33–70; Ht 165.1 cm; Wt 93.2 kg
--- NOTE | 2019-06-11 00:30 | NUR ---
RAPID RESPONSE CALLED. PT LETHARGIC, HYPOTENSIVE, FSBS 83. ONLY ROUSEABLE TO PHYSICAL STIMULI. PT WILL DRIFT BACK TO SLEEP IN MID CONVERSATION. LAST 2 BP SYSTOLIC IN THE 80'S. UNKNOWN WHAT PTS TRUE BASELINE IS DUE TO RECENT ADMISSION.
--- NOTE | 2019-06-11 01:30 | NUR ---
NEW ORDERS REVEIVED. PT NOW ON BIPAP AND CURRENTLEY RECEIVING 500ML BOLUS OF NS.
--- NOTE | 2019-06-11 02:30 | NUR ---
BP NOW 96/33 FSBS 79
--- NOTE | 2019-06-11 04:24 | NUR ---
PTS BP NOW 91/50, STILL ON BIPAP. NO CHANGES IN LOC.
[2019-06-11 05:13] LABS: BASOPHILS 0.1 % (0-2); EOSINOPHILS 0 % (0-7); HEMATOCRIT 34.5 % (36.0-48.0); HEMOGLOBIN 9.8 g/dL (12-16); IMMATURE GRANULOCYTES 0.5 % (0-5); LYMPHOCYTES 19.7 % (15-50); MCH 27.9 pg (26.0-34.0); MCHC 28.4 g/dL (31.0-37.0); MCV 98.3 fL (80.0-100.0); MEAN PLATELET VOLUME 9.9 fL (7.4-10.4); MONOCYTES 7.5 % (2-11); NEUTROPHILS 72.2 % (40-80); RBC 3.51 10x6/uL (4.00-5.40); RDW 19.9 % (11.5-14.5); WBC 8.4 10x3/uL (4.8-10.8)
[2019-06-11 05:18] LABS: PLATELET COUNT 182 10x3/uL (130-400)
[2019-06-11 05:35] LABS: ALBUMIN 2.1 g/dL (3.4-5.0); BILIRUBIN - TOTAL 0.31 mg/dL (0.2-1.3); CALCIUM 7.4 mg/dL (8.5-10.1); CARBON DIOXIDE 26.5 mmol/L (21.0-32.0); CREATININE - SERUM 4.1 mg/dL (0.6-1.3); PHOSPHOROUS 6.5 mg/dL (2.5-4.9); PROTEIN - SERUM 6.7 g/dL (6.4-8.2)
[2019-06-11 05:36] LABS: ANION GAP 13.1 mmol/L (8-16); POTASSIUM - SERUM 5.6 mmol/L (3.5-5.1)
--- NOTE | 2019-06-11 08:31 | NUR ---
DR KAPLAN CONSULTED REGUARDING PT'S ABG'S THIS AM. PT ON BIPAP AND EUSEBIO WILL ROUND. BP-83/45 RR-[address] WILL CONMTINUE TO MONITOR.
--- NOTE | 2019-06-11 08:33 | NUR ---
abg results called to dr joseph he asked to change settings to 15/5 40%..will contiune to monitor
--- NOTE | 2019-06-11 09:16 | NUR ---
pt to be transported to icu. report being called.
[2019-06-11 10:01] LABS: % SATURATION 12 % (15-55); IRON 47 ug/dl (35-150); TOTAL IRON BIND CAPACITY 381 ug/dl (260-445); UNSAT IRON BIND CAPACITY 334 ug/dl (150-375)
--- NOTE | 2019-06-11 10:05 | NUR ---
0951: REC'D TO 2307 VIA BED. TRANSFERRED TO ICU BED BY TOTAL LIFT. LETHARGIC. AROUSES TO VERBAL STIMULI AND FOLLOWS COMMANDS. CONNECTED TO MONITOR AND VS OBTAINED. 0955: DONOHUE CATH PLACED BY Justyna KERN RN USING ASEPTIC TECHNIQUE WITH IMMEDIATE RETURN CLEAR YELLOW URINE.
--- NOTE | 2019-06-11 10:16 | NUR ---
0951- RECEIVED PT TO ICU. ALL MONITORING EQUIPMENT ATTACHED AND ALARMS SET. ASSESSMENT COMPLETE. BIPAP PLACED BY RT. PT FOLLOWS COMMAND.
--- NOTE | 2019-06-11 10:30 | NUR ---
DR KAPLAN NOTIFIED OF PTS ARRIVAL. NOÉ WITH RENAL NOTIFIED OF PTS ARRIVAL.
--- NOTE | 2019-06-11 12:09 | NUR ---
RENAL US IN PROGRESS. DR BLAIR HERE ON ROUNDS.REPORTED BP MAP 60.
[2019-06-11 14:31] LABS: ANION GAP 14.9 mmol/L (8-16); CALCIUM 7.3 mg/dL (8.5-10.1); CARBON DIOXIDE 25.3 mmol/L (21.0-32.0); CREATININE - SERUM 3.6 mg/dL (0.6-1.3); POTASSIUM - SERUM 5.2 mmol/L (3.5-5.1)
[2019-06-11 17:47] LABS: ALBUMIN 2.1 g/dL (3.4-5.0); ANION GAP 15.4 mmol/L (8-16); BILIRUBIN - TOTAL 0.34 mg/dL (0.2-1.3); CALCIUM 7.6 mg/dL (8.5-10.1); CARBON DIOXIDE 25.9 mmol/L (21.0-32.0); CREATININE - SERUM 3.1 mg/dL (0.6-1.3); POTASSIUM - SERUM 5.3 mmol/L (3.5-5.1); PROTEIN - SERUM 6.3 g/dL (6.4-8.2)
[2019-06-11 18:30] LABS: UDS - AMPHET NEGATIVE QUAL (NEGATIVE); UDS - BARB NEGATIVE QUAL (NEGATIVE); UDS - BENZO POSITIVE QUAL (NEGATIVE); UDS - COCAINE NEGATIVE QUAL (NEGATIVE); UDS - OPIATE POSITIVE QUAL (NEGATIVE); UDS - PCP NEGATIVE QUAL (NEGATIVE); UDS - THC NEGATIVE QUAL (NEGATIVE)
[2019-06-12] VITALS (24 sets, daily range): BP systolic 92–133; BP diastolic 47–78
--- NOTE | 2019-06-12 00:40 | NUR ---
1900 PT ASSESSMENT COMPLETED AT THIS TME, PT AWAKE AND ALERT ASKING WHERE SHE WAS AND HOW LONG SHE HAD BEEN THERE. PT WAS ORIENTED, AND VERBILIZED UNDERSTANDING, PT ON BIPAP, VSS, WILL MONTIOR FOR CHANGES 2100 PT AWAKES TO NAME AND ANSWERS QUESTIONS AND FOLLOWING COMMANDS, VSS 2300 PT REASSESSMENT COMPLETED AT THIS TIME, NO CHANGES NOTED FROM PREVIOUS EXAM, VSS WILL MONITOR FOR CHANGES
--- NOTE | 2019-06-12 01:00 | NUR ---
PT RESTING ON BIPAP, PT WILL ASK QUESTIONS AND TALK, PT STILL CONFUSED, VSS
--- NOTE | 2019-06-12 03:00 | NUR ---
PT REASSESSMENT COMPLETED AT THIS TIME, NO CHANGES NOTED FROM PREVIOUS EXAM, WILL MONITOR FOR CHANGES
[2019-06-12 03:34] LABS: BASOPHILS 0.2 % (0-2); EOSINOPHILS 0 % (0-7); HEMATOCRIT 36.7 % (36.0-48.0); HEMOGLOBIN 10.4 g/dL (12-16); IMMATURE GRANULOCYTES 0.3 % (0-5); LYMPHOCYTES 15.9 % (15-50); MCHC 28.3 g/dL (31.0-37.0); MCV 98.7 fL (80.0-100.0); MEAN PLATELET VOLUME 9.4 fL (7.4-10.4); MONOCYTES 7.8 % (2-11); NEUTROPHILS 75.8 % (40-80); PLATELET COUNT 209 10x3/uL (130-400); RBC 3.72 10x6/uL (4.00-5.40); RDW 19.7 % (11.5-14.5)
[2019-06-12 03:42] LABS: WBC 5.8 10x3/uL (4.8-10.8)
[2019-06-12 03:47] LABS: ANION GAP 12.6 mmol/L (8-16); CALCIUM 8.2 mg/dL (8.5-10.1); CARBON DIOXIDE 28.8 mmol/L (21.0-32.0); CREATININE - SERUM 2.1 mg/dL (0.6-1.3); MAGNESIUM - SERUM 2.2 mg/dL (1.8-2.4); PHOSPHOROUS 4.4 mg/dL (2.5-4.9); POTASSIUM - SERUM 5.4 mmol/L (3.5-5.1)
--- NOTE | 2019-06-12 05:00 | NUR ---
PT RESTING ON BIPAP NO DISTRESS NOTED, VSS, WILL MONITOR FOR CHANGES
--- NOTE | 2019-06-12 08:52 | NUR ---
PT PULLING HER BIPAP OFF THIS AM. O2 4LNC APPLIED AND PT SPO2 OK FOR APPROX 20MIN WHILE CLEANING FACE AND MOUTH AND INST I.S. SPO2 DROPS TO 86% AFTER 20MIN. BIPAP REPLACED.
[2019-06-12 17:01] LABS: ANION GAP 14.7 mmol/L (8-16); CALCIUM 8.6 mg/dL (8.5-10.1); CREATININE - SERUM 1.4 mg/dL (0.6-1.3); POTASSIUM - SERUM 4.7 mmol/L (3.5-5.1)
--- NOTE | 2019-06-12 17:54 | NUR ---
PT BACK TO BED. BIPAP PLACED AT 40%.
[2019-06-13] VITALS (9 sets, daily range): BP systolic 99–146; BP diastolic 50–88
--- NOTE | 2019-06-13 01:02 | NUR ---
1900 PT ASSESSMENT COMPLETED AT THIS TIME, NO CHANGES NOTED FROMK NURSE REPORT, PT RESTING ON BIPAP AND AWAKES TO NAME AND FOLLWS COMMANDS, VSS WILL MONITOR FOR CHANGES
--- NOTE | 2019-06-13 01:03 | NUR ---
2100 PT RESTING AWAKE AND ALERT, PT ON N/C AT THIS TIME AND COMPLAINING THAT SHE IS UNCOMFORTABLE AND AND TURNED ON IN THE BED TO REPOSTITION, VSS WILL MONITOR FOR CHANGES 2300 PT REASSEMENT COMPLETED AT THIS TIME, NO CHANGES NOTED FROM PREVIOUS EXAM, VSS, WILL MONITOR FOR CHANGES
--- NOTE | 2019-06-13 01:06 | NUR ---
2300 PT C/O RIOS PRN TYLENOL GIVEN AT THIS TIME
--- NOTE | 2019-06-13 03:00 | NUR ---
PT REASSESSMENT COMPLETED AT THIS TIME, NO CHANGES NOTED FROM PREVIOUS NOTED, WILL MONITOR FOR CHANGES
[2019-06-13 03:52] LABS: BASOPHILS 0.2 % (0-2); EOSINOPHILS 0 % (0-7); HEMATOCRIT 36.2 % (36.0-48.0); HEMOGLOBIN 10.1 g/dL (12-16); IMMATURE GRANULOCYTES 0.4 % (0-5); LYMPHOCYTES 20.2 % (15-50); MCH 27.5 pg (26.0-34.0); MCHC 27.9 g/dL (31.0-37.0); MCV 98.6 fL (80.0-100.0); MEAN PLATELET VOLUME 10.3 fL (7.4-10.4); MONOCYTES 10.3 % (2-11); NEUTROPHILS 68.9 % (40-80); RBC 3.67 10x6/uL (4.00-5.40); RDW 19.9 % (11.5-14.5); WBC 5.1 10x3/uL (4.8-10.8)
[2019-06-13 04:03] LABS: PLATELET COUNT 252 10x3/uL (130-400)
[2019-06-13 04:10] LABS: ANION GAP 11.1 mmol/L (8-16); CALCIUM 8.5 mg/dL (8.5-10.1); CREATININE - SERUM 1.2 mg/dL (0.6-1.3); MAGNESIUM - SERUM 2.2 mg/dL (1.8-2.4); POTASSIUM - SERUM 4.6 mmol/L (3.5-5.1)
[2019-06-13 04:11] LABS: CARBON DIOXIDE 31.5 mmol/L (21.0-32.0); PHOSPHOROUS 2.7 mg/dL (2.5-4.9)
--- NOTE | 2019-06-13 05:00 | NUR ---
PT AWAKE AND ON BIPAP, PT ADVISED THAT SHE IS WANTING TO GET OUT OF THE BED AND INTO THE CHAIR, PT WAS INFORMED THAT SHE COULD GET UP TO THE CHAIR AROUND 6 AM FOR BREAKFAST
--- NOTE | 2019-06-13 07:00 | NUR ---
Assessment complete per flowsheet. Wanting to get up in chair. Instruct to patient I need to make sure I can get her up alone.
--- NOTE | 2019-06-13 07:30 | NUR ---
Up to chair with minimum assist. Bath given. linens changed. Will order breakfast instruct to patient the last order in computer is npo. Will change per Dr Humphrey.
--- NOTE | 2019-06-13 08:24 | NUR ---
Nutrition follow-up: Diet advanced to consistent CHO Renal function back to normal Pt up in chair waiting on breakfast Labs reviewed Wt: 205# RDN following.
--- NOTE | 2019-06-13 10:00 | NUR ---
Pt incont of stool. Apologizing for the stool. Instruct its ok. Will get cleaned up and pad changed. Bathed lower body and clean pad to chair.
--- NOTE | 2019-06-13 10:30 | NUR ---
Pt states, "My iv fell out." Cleaned off arm.
--- NOTE | 2019-06-13 10:45 | NUR ---
Pt wanting hair brushed out. [place] handed to pt. Pt states, I want you to do it. Instruct pt can not do it at this moment i have to take my other pt to ct. Encourage pt to brush own hair.
--- NOTE | 2019-06-13 12:00 | NUR ---
Report called to Tiff rosen.
--- NOTE | 2019-06-13 12:10 | NUR ---
moved to med 2 via wheelchair. Pt apoligizing for being a bitch. Instruct to pt she was not being that way. Instruct to pt it was a pleasure taking care of her.
--- NOTE | 2019-06-13 14:51 | NUR ---
PT PULLED OUT 22G IN CHEST. DRESSING APPLIED C/D/I. WILL CONTINUE TO MONITOR.
--- NOTE | 2019-06-13 19:10 | NUR ---
CL ANSWERED, PT ASKING FOR LIGHTS TO BE TURNED OFF. LIGHTS TURNED OFF PER PT REQUEST.
--- NOTE | 2019-06-13 19:35 | NUR ---
CL ANSWERED, PT UP WITH ASSIST TO BR.
--- NOTE | 2019-06-13 20:01 | NUR ---
CL ANSWERED, PT SITTING UP ON SIDE OF BED, PT STATED THAT SHE "NEEDS HELP" ASKED PT WHAT SHE NEEDED HELP WITH,PT STATED THAT SHE NEEDS A NIGHT LIGHT TURNED ON AND HELP REPOSITIONING IN BED. ASSISTED PT TO LAY DOWN IN BED, COVERED HER WITH TOP SHEET, PT STATED THAT SHE DIDNT WANT HER BLANKET, PULLED HER HAIR OUT FROM UNDERNEATH HER NECK AND BACK AND TURNED LIGHT ON OVER THE SINK. BED LOW, CL IN REACH. INFORMED PT THAT THIS NURSE WILL BE BACK SHORTLY WITH NIGHT MEDS AND A PAIN PILL.
--- NOTE | 2019-06-13 20:30 | NUR ---
CL ANSWERED, PT ASKING IF SHE HAD "POOPED THE BED" AFTER ASSESSING PT AGAIN, INFORMED PT THAT SHE DID NOT POOP IN THE BED BUT WE WILL CHANGE HER BEDDING TO MAKE HER MORE COMFORTABLE.
--- NOTE | 2019-06-13 20:40 | NUR ---
COAL CARRIER AT BED SIDE, PT ASKING FOR HER HAIR TO BE BRAIDED, COAL CARRIER BRAIDED PTS HAIR AT HER REQUEST.
--- NOTE | 2019-06-13 20:55 | NUR ---
HS MEDS GIVEN WITH FRESH ICE WATER. PT ASKING FOR NAUSEA MEDS, RETURNED WITH ZOFRAN ZOFRAN 4 MG GIVEN FOR C/O NAUSEA. PT STATED THAT SHE TAKES PHENERGAN AT HOME, INFORMED PT THAT ZOFRAN IS ALL THAT IS ORDERED, BUT IF IT DOESNT WORK THEN WE CAM ALL THE DOCTOR.
--- NOTE | 2019-06-13 21:17 | NUR ---
CL ANSWERED, PT ASKING FOR BR LIGHT TO BE TURNED OFF AND WITH ASSISTANCE COVERING UP. BR LIGHT TURNED OFF, COMFORTER PLACED ACROSS PTS BODY, BED LOW, CL IN REACH.
--- NOTE | 2019-06-13 23:29 | NUR ---
UP WITH ASSIST TO BR.
[2019-06-14] VITALS: BP 143/68
--- NOTE | 2019-06-14 00:27 | NUR ---
ZOFRAN 4 MG GIVEN IV FOR C/O NAUSEA, TYLENOL 650 MG GIVEN FOR C/O RIOS, BENADRYL 50 MG GIVEN FOR C/O INSOMNIA. PT DENIES OTHER NEEDS AT THIS TIME, BED LOW, CL IN REACH.
--- NOTE | 2019-06-14 00:54 | NUR ---
CL ANSWERED, PT ASKING FOR ASSISTANCE TO SIT UP IN CHAIR AND ASKING HOW TO WORK TV. UP WITH ASSIST TO CHAIR AND INSTRUCTIONS GIVEN ON HOW TO CHANGE CHANNELS AND VOLUME ON CL/TV CONTROLLER.
--- NOTE | 2019-06-14 01:08 | NUR ---
TERRANCE ANSWERED, PT ASKING FOR RT TO PUT ON BI PIP. KRISTINA RT, NOTIFIED.
--- NOTE | 2019-06-14 01:31 | NUR ---
CL ANSWERED BY CHARGE NURSE, PT STATED THAT SHE CANT GET COMFORTABLE. ADJUSTED AIR AT PTS REQUEST.
--- NOTE | 2019-06-14 03:47 | NUR ---
I have reviewed this patient and I concur with the Shift Assessment completed by the Licensed Practical Nurse today this shift.
--- NOTE | 2019-06-14 03:56 | NUR ---
PT ASKING FOR PAIN MEDS, INFORMED PT THAT HER OXY IS SCHEDULED AND DUE AT 0600, AND I WILL BRING IT IN SOON I CAN. PT STATED UNDERSTANDING.
[2019-06-14 04:00] VITALS: BP 145/80
--- NOTE | 2019-06-14 04:13 | NUR ---
UP WITH ASSIST TO BR.
[2019-06-14 05:09] LABS: BASOPHILS 0.2 % (0-2); EOSINOPHILS 0 % (0-7); HEMATOCRIT 36.8 % (36.0-48.0); HEMOGLOBIN 10.4 g/dL (12-16); IMMATURE GRANULOCYTES 0.5 % (0-5); LYMPHOCYTES 25.2 % (15-50); MCH 27.9 pg (26.0-34.0); MCHC 28.3 g/dL (31.0-37.0); MCV 98.7 fL (80.0-100.0); MEAN PLATELET VOLUME 10.1 fL (7.4-10.4); NEUTROPHILS 63.1 % (40-80); PLATELET COUNT 248 10x3/uL (130-400); RBC 3.73 10x6/uL (4.00-5.40); RDW 19.7 % (11.5-14.5); WBC 6.3 10x3/uL (4.8-10.8)
[2019-06-14 05:22] LABS: ANION GAP 7.7 mmol/L (8-16); CALCIUM 8.4 mg/dL (8.5-10.1); CARBON DIOXIDE 32.7 mmol/L (21.0-32.0); MAGNESIUM - SERUM 1.9 mg/dL (1.8-2.4); PHOSPHOROUS 2.6 mg/dL (2.5-4.9); POTASSIUM - SERUM 4.4 mmol/L (3.5-5.1)
[2019-06-14] MEDS ORDERED: ZANAFLEX4 MG PO (06:22)
--- NOTE | 2019-06-14 07:40 | NUR ---
ASSESSMENT DONE. DENIES NEEDS
[2019-06-14 08:00] VITALS: BP 160/80
--- NOTE | 2019-06-14 11:10 | NUR ---
I have reviewed this patient and I concur with the Shift Assessment completed by the Licensed Practical Nurse today this shift.
[2019-06-14 13:25] VITALS: BP 149/64
--- NOTE | 2019-06-14 14:24 | NUR ---
OT NOTE: PT COMPLETED SUPINE TO SIT WITH CGA/MIN A. PT COMPLETED ADL MOB WITH CGA. PT STATED SHE IS VERY WEAK TODAY. PT COMPLETED BUE AROM AXS. [phone] THANK YOU,ANGI VOSS
--- NOTE | 2019-06-14 19:30 | NUR ---
PT IN BED, EYES CLOSED, RESP EVEN AND UNLABORED, NO DISTRESS NOTED, CL IN REACH, SR UP X 2.
[2019-06-14 21:12] VITALS: BP 149/73
--- NOTE | 2019-06-14 23:40 | NUR ---
THIS HOLE DIGGER OPERATOR HAS NOW TAKEN OVER CARE OF THIS PT. PT LYING SUPINE IN BED AND C/O PAIN IN BACK AND NECK RATING 10. HAS SCHEDULED OXYCODONE. OFFERED TYLENOL AND PT ACCEPTED. O2 @ 3L/NC. SOB NOTED. NONPROD COUGH REPORTED. BBS COARSE. PT IS MORBIDLY OBESE. AMB WITH WALKER. GEN WEAKNESS NOT3ED. 2+ EDEMA NOTED TO BLE. SALINE LOCK NOTED TO LT AC. SR ELEVATED X2. CL IN REACH. NO ACUTE DISTRESS.
[2019-06-15] VITALS: BP 130/63
--- NOTE | 2019-06-15 00:15 | NUR ---
NOTIFIED RT KRISTINA THAT PT IS NOT ON BIPAP AND REQUESTED SHE BE PLACED ON AT THIS TIME.
--- NOTE | 2019-06-15 02:22 | NUR ---
RESTING IN BED WITH EYES CLOSED. BIPAP IN USE. NO DISTRESS. CL IN REACH.
--- NOTE | 2019-06-15 04:15 | NUR ---
ASSISTED UP TO BR TO VOID. C/O PAIN IN BACK BUT STATES SHE IS TRYING TO WAIT ON HER SCHEDULED PAIN MED. PLACED BACK ON BIPAP AT THIS TIME. CL IN REACH.
[2019-06-15 05:17] VITALS: BP 113/53
[2019-06-15 05:29] LABS: ANION GAP 10.4 mmol/L (8-16); CALCIUM 8.3 mg/dL (8.5-10.1); CARBON DIOXIDE 31.5 mmol/L (21.0-32.0); CREATININE - SERUM 0.9 mg/dL (0.6-1.3); MAGNESIUM - SERUM 1.9 mg/dL (1.8-2.4); PHOSPHOROUS 2.6 mg/dL (2.5-4.9); POTASSIUM - SERUM 4.9 mmol/L (3.5-5.1)
--- NOTE | 2019-06-15 05:53 | NUR ---
STANDBY ASSIST UP TO BR TO VOID. RECEIVED SCHEDULED PAIN MED AND C/O PAIN IN BACK RATING 10. BACK TO BED. BIPAP IN USE. CL IN REACH.
[2019-06-15 08:03] VITALS: BP 135/48
[2019-06-15 08:30] LABS: BASOPHILS 0.2 % (0-2); EOSINOPHILS 0 % (0-7); HEMATOCRIT 39.8 % (36.0-48.0); HEMOGLOBIN 11.3 g/dL (12-16); IMMATURE GRANULOCYTES 0.5 % (0-5); MCHC 28.4 g/dL (31.0-37.0); MCV 98.8 fL (80.0-100.0); MEAN PLATELET VOLUME 9.6 fL (7.4-10.4); MONOCYTES 8.5 % (2-11); NEUTROPHILS 57.8 % (40-80); PLATELET COUNT 227 10x3/uL (130-400); RBC 4.03 10x6/uL (4.00-5.40); RDW 19.9 % (11.5-14.5); WBC 6.1 10x3/uL (4.8-10.8)
--- NOTE | 2019-06-15 09:58 | NUR ---
PT'S CALLED HOSPITAL TWICE. RETURNED CALL AND DID NOT GET AN ANSWER LEFT VOICEMAIL.
--- NOTE | 2019-06-15 10:02 | NUR ---
SPOKE WITH PT'S OVER THE PHONE AND GAVE HIM UPDATE.
--- NOTE | 2019-06-15 10:26 | NUR ---
I have reviewed this patient and I concur with the Shift Assessment completed by the Licensed Practical Nurse today this shift.
--- NOTE | 2019-06-15 11:17 | NUR ---
PT UP WALKING WITH P.T.
[2019-06-15 11:35] VITALS: BP 137/55
--- NOTE | 2019-06-15 14:01 | NUR ---
OT NOTE: PT COMPLETED SIT TO STAND WITH SBA. PT COMPLETED ADL MOB WITH CGA. PT EXHIBITED NEED FOR REST BREAK. PT COMPLETED LB HYGIENE TASKS WITH SET UP. PT STATED SHE IS GOING HOME TODAY. PT COMPLETED HAND HYGIENE WITH SET UP. [phone] THANK YOU,ANGI VOSS
--- NOTE | 2019-06-15 14:14 | NUR ---
EMT B SPOKE WT DR. HERNANDEZ AND HE STATES PT OK TO DC WITH BIPAP AT HOME. SETTING NEED TO BE CHANGED. CASE MANAGEMENT SPOKE WITH [facility] AND GAVE THEM PT'S BIPAP SETTING THAT SHE IS ON HERE AND THEY WILL CHANGE HER HOME BIPAP SETTINGS. SPOKE WITH MIKE MAHER AND SHE STATES SHE WILL DC PT.
--- NOTE | 2019-06-15 14:24 | MORECARE ---
CASE MANAGEMENT DISCHARGE SUMMARY PATIENT: JORDEN AYALA ANN UNIT: [id number] ADM DATE: 06/10/19 AGE: 54 : 67 SEX: F ROOM/BED: D.2108 AUTHOR: ABDOULAYE,DOC PHYSICIAN: REFERRING PHYSICIAN: LUDWIG BLAIR MD DATE OF SERVICE: 06/15/19 Discharge Plan Patient Name: JORDEN AYALA Facility: [facility]:[place] : 1965 Planned Disposition: Home Anticipated Discharge Date: 06/15/19 Discharge Date: Expected LOS: 5 Initial Reviewer: [email or web address] Initial Review Date: 06/10/2019 Generated: 06/15/19 3:23 pm DCPIA - Discharge Planning Initial Assessment Updated by [id number]: Maryuri Garsia on 06/15/19 2:21 pm * Is the patient Alert and Oriented? Yes * How many steps to enter\exit or inside your home? Ramp/0 * PCP Dr. Eldridge * Pharmacy [facility] * Preadmission Environment Home with Family * ADLs Partial Dependent * Partial ADLs (Assistance needed) Ambulation * Equipment BIPAP Nebulizer Other Oxygen Shower Chair Walker Wheelchair * List name and contact numbers for known caregivers / representatives who currently or will assist patient after discharge: Giles Ayala - spouse - [phone] Chepe Ayala - son - unknown Coverage Notice Reviewer: [id number] A Garsia Notice Issued Date-Time: 06/15/2019 14:14 Notice Type: IM Discharge Notice Notice Delivered To: Patient Relationship to Patient: Self Coffee Bar Attendant Name: Delivery Method: HAND - Hand Delivered Jayashree Days: Prior Verbal Notification: Recipient Understood Notice: Yes Recipient Signature: Yes Med Rec Note Co-signed by Attending: Coverage Notice Comment: IMM EXPLAINED, SIGNED, GIVEN, COPY PLACED IN MR Reviewer: [id number] Kristie Garsia Notice Issued Date-Time: 06/15/2019 14:14 Notice Type: Patient Choice Letter Notice Delivered To: Patient Relationship to Patient: Self Coffee Bar Attendant Name: Delivery Method: HAND - Hand Delivered Jayashree Days: Prior Verbal Notification: Recipient Understood Notice: Yes Recipient Signature: Yes Med Rec Note Co-signed by Attending: Coverage Notice Comment: RUD[facility] FOR [facility] Patient Name: VEST, JORDEN Page [phone] at 1424 All edits/amendments must be made on the electronic document DICTATION DATE: 06/15/191422 MEDICAL TRANSLATOR: PRINCESS 06/15/191422 RPT#: [id number] DC DATE: STATUS: ADM IN [facility] [address] [place] [address] END OF REPORT
--- NOTE | 2019-06-15 14:30 | NUR ---
OT NOTE: CHECKED ON PT EARLIER IN AM; STATES THAT SHE JUST GOT SHOWER AND NEEDED TO REST FIRST. PT SEEN LATER..ABLE TO PERFORM BED MOB WITH SPV; AMB TO BATHROOM WITH CGA; SBA FOR TOILET HYGIENE; BACK TO BED AND REQUIRED REST BREAK. SIMPLE GROOMING TASKS WITH SET UP. PT REPORTS THAT SHE WILL BE GOING HOME TODAY.. WAS UNSURE IF RECEIVING HOME HEALTH.. WILL PROVIDE HOME EX PROGRAM. CARLOS POWERS, OTR/L
--- NOTE | 2019-06-15 14:32 | MORECARE ---
CASE MANAGEMENT DISCHARGE SUMMARY PATIENT: JORDEN AYALA ANN UNIT: [id number] ADM DATE: 06/10/19 AGE: 54 : 67 SEX: F ROOM/BED: D.2064 AUTHOR: ABDOULAYE,DOC PHYSICIAN: REFERRING PHYSICIAN: LUDWIG BLAIR MD DATE OF SERVICE: 06/15/19 Discharge Plan Patient Name: JORDEN AYALA Facility: [facility]:[place] : 1965 Planned Disposition: Home Anticipated Discharge Date: 06/15/19 Discharge Date: Expected LOS: 5 Initial Reviewer: [email or web address] Initial Review Date: 06/10/2019 Generated: 06/15/19 3:32 pm Comments DCP- Discharge Planning Updated by [id number]: Maryuri Garsia on 06/15/19 1:[address] Patient Name: JORDEN AYALA Admission Status: ER Accout number: [id number] Admission Date: 06-10-2019 : 1965 Admission Diagnosis:RETENTION OF URINE, UNSPECIFIED Attending: LUDWIG BLAIR Current LOS: 5 Anticipated DC Date: 06-15-2019 Planned Disposition: Home Primary Insurance: [facility] MEDICARE SOLUTIONS Discharge Planning Comments: CM met with patient to discuss discharge planning/needs. She lives with her and son. States plan is to return home with for transportation and feels this is a safe discharge. I discussed the availability of home health, rehab, additional DME, she denies needs. States "I have everything I need." States she has a BIPAP. I called [facility] and confirmed she has a BIPAP/settings are EPAP - 5, IPAP - 15, Rate -10. Currently orders are 20/5 and the settings are the same as written with 40% oxygen. I called Dr. Logan and he states OK for BIPAP at home that [facility] may need to adjust settings. Sharla with [facility] is to return my call. CM will continue to follow and assist with discharge planning/needs. Grain Mill Worker: Maryuri Garsia DCPIA - Discharge Planning Initial Assessment Updated by [email or web address]: Maryuri Garsia on 06/15/19 2:21 pm * Is the patient Alert and Oriented? Yes * How many steps to enter\\exit or inside your home? Ramp/0 * PCP Dr. Eldridge * Pharmacy [facility] * Preadmission Environment Home with Family * ADLs Partial Dependent * Partial ADLs (Assistance needed) Ambulation * Equipment BIPAP Nebulizer Other Oxygen Shower Chair Walker Wheelchair * List name and contact numbers for known caregivers / representatives who currently or will assist patient after discharge: Giles Ayala - spouse - [phone] Chepe Flowers son - unknown Coverage Notice Reviewer: [id number] Garsia Notice Issued Date-Time: 06/15/2019 14:14 Notice Type: IM Discharge Notice Notice Delivered To: Patient Relationship to Patient: Self Electrical Control Assembler Name: Delivery Method: HAND - Hand Delivered Jayashree Days: Prior Verbal Notification: Recipient Understood Notice: Yes Recipient Signature: Yes Med Rec Note Co-signed by Attending: Coverage Notice Comment: IMM EXPLAINED, SIGNED, GIVEN, COPY PLACED IN MR Reviewer: [id number] Garsia Notice Issued Date-Time: 06/15/2019 14:14 Notice Type: Patient Choice Letter Notice Delivered To: Patient Relationship to Patient: Self Electrical Control Assembler Name: Delivery Method: HAND - Hand Delivered Jayashree Days: Prior Verbal Notification: Recipient Understood Notice: Yes Recipient Signature: Yes Med Rec Note Co-signed by Attending: Coverage Notice Comment: [facility] Last DP export: 06/15/19 1:24 p Patient Name: JORDEN AYALA Page [phone] at 1432 All edits/amendments must be made on the electronic document DICTATION DATE: 06/15/191431 CHEST PAINTING AND SEALING SUPERVISOR: PRINCESS 06/15/19 143 RPT#: [id number] DC DATE: STATUS: ADM IN [facility] [address] [place] [address] END OF REPORT
[2019-06-15 14:57] VITALS: BP 126/66
--- NOTE | 2019-06-15 17:27 | MORECARE ---
CASE MANAGEMENT DISCHARGE SUMMARY PATIENT: JORDEN AYALA ANN UNIT: [id number] ADM DATE: 06/10/19 AGE: 54 : 67 SEX: F ROOM/BED: D.2105 AUTHOR: ABDOULAYE,DOC PHYSICIAN: REFERRING PHYSICIAN: LUDWIG BLAIR MD DATE OF SERVICE: 06/15/19 Discharge Plan Patient Name: JORDEN AYALA Facility: [facility]:[place] : 1965 Planned Disposition: Home Anticipated Discharge Date: 06/15/19 Discharge Date: Expected LOS: 5 Initial Reviewer: [id number] Initial Review Date: 06/10/2019 Generated: 06/15/19 6:26 pm Comments DCP- Discharge Planning Updated by [id number]: Maryuri Garsia on 06/15/19 4:[address] I SPOKE WITH KEIRY AT [facility] SHE STATES THAT SHE HAS A BIPAP AVAPS WITH THE SAME SETTINGS WE HAVE HER ON HERE WITH TV OF 450. STATES THEY WILL F/U WITH THE PATIENT ON DISCHARGE. CM WILL CONTINUE TO FOLLOW AND ASSIST WITH DC PLANNING/NEEDS. DCP- Discharge Planning Updated by [id number]: Maryuri Garsia on 06/15/19 1:[address] Patient Name: JORDEN AYALA Admission Status: ER Accout number: [id number] Admission Date: 06-10-2019 : 1965 Admission Diagnosis:RETENTION OF URINE, UNSPECIFIED Attending: LUDWIG BLAIR Current LOS: 5 Anticipated DC Date: 06-15-2019 Planned Disposition: Home Primary Insurance: [facility] MEDICARE SOLUTIONS Discharge Planning Comments: CM met with patient to discuss discharge planning/needs. She lives with her and son. States plan is to return home with for transportation and feels this is a safe discharge. I discussed the availability of home health, rehab, additional DME, she denies needs. States "I have everything I need." States she has a BIPAP. I called [facility] and confirmed she has a BIPAP/settings are EPAP - 5, IPAP - 15, Rate -10. Currently orders are 20/5 and the settings are the same as written with 40% oxygen. I called Dr. Logan and he states OK for BIPAP at home that [facility] may need to adjust settings. Keiry with [facility] is to return my call. CM will continue to follow and assist with discharge planning/needs. Facility Service Associate: Maryuri Garsia DCPIA - Discharge Planning Initial Assessment Updated by [email or web address]: Maryuri Garsia on 06/15/19 2:21 pm * Is the patient Alert and Oriented? Yes * How many steps to enter\\exit or inside your home? Ramp/0 * PCP Dr. Eldridge * Pharmacy [facility] * Preadmission Environment Home with Family * ADLs Partial Dependent * Partial ADLs (Assistance needed) Ambulation * Equipment BIPAP Nebulizer Other Oxygen Shower Chair Walker Wheelchair * List name and contact numbers for known caregivers / representatives who currently or will assist patient after discharge: Giles Ayala - spouse - [phone] Chepe Ayala - son - unknown Coverage Notice Reviewer: [email or web address] Garsia Notice Issued Date-Time: 06/15/2019 14:14 Notice Type: IM Discharge Notice Notice Delivered To: Patient Relationship to Patient: Self Intensivist Name: Delivery Method: HAND - Hand Delivered Jayashree Days: Prior Verbal Notification: Recipient Understood Notice: Yes Recipient Signature: Yes Med Rec Note Co-signed by Attending: Coverage Notice Comment: IMM EXPLAINED, SIGNED, GIVEN, COPY PLACED IN MR Reviewer: [id number] A Garsia Notice Issued Date-Time: 06/15/2019 14:14 Notice Type: Patient Choice Letter Notice Delivered To: Patient Relationship to Patient: Self Intensivist Name: Delivery Method: HAND - Hand Delivered Jayashree Days: Prior Verbal Notification: Recipient Understood Notice: Yes Recipient Signature: Yes Med Rec Note Co-signed by Attending: Coverage Notice Comment: [facility] Last DP export: 06/15/19 1:32 p Patient Name: JORDEN AYALA Page [phone] at 1727 All edits/amendments must be made on the electronic document DICTATION DATE: 06/15/191725 COIN PURSE FRAMER: PRINCESS 06/15/191725 RPT#: [id number] DC DATE: STATUS: ADM IN [facility] [address] [place] [address] END OF REPORT
--- NOTE | 2019-06-15 17:30 | NUR ---
PAGED KAMERON MAHER AND MIKE MAHER ABOUT DISCHARGE ORDER FOR PT. WILL AWAIT A RETURN CALL.
--- NOTE | 2019-06-15 18:39 | NUR ---
THE SLIP CASTER X3 AND MD MONUMENT SETTER. STILL HAVE BNOT GOTTEN CALL BACK.
--- NOTE | 2019-06-15 19:38 | NUR ---
RECEIVED BEDSIDE REPORT. PATIENT IS ALERT AND ORIENTED. RESTING COMFORTABLY IN BED. RESPIRATIONS ARE EVEN AND UNLABORED. NO S/S OF DISTRESS. NO C/O PAIN. CALL LIGHT WITHIN REACH. WILL CPOC.
[2019-06-15 20:00] VITALS: BP 126/72
--- NOTE | 2019-06-15 20:58 | NUR ---
SPOKE WITH PATIENT SON (PASSCODE PROVIDED). SON WAS WONDERING IF PATIENT WAS GOING TO BE DISCHARGED THIS EVENING. SON WOULD LIKE TO BE CALLED [place] PRIOR TO DISCHARGE TO ARRANGE TRANSPORTATION.
[2019-06-16 00:30] VITALS: BP 147/68
[2019-06-16 04:30] VITALS: BP 147/75
[2019-06-16 05:34] LABS: BASOPHILS 0.2 % (0-2); EOSINOPHILS 0 % (0-7); HEMATOCRIT 38.4 % (36.0-48.0); HEMOGLOBIN 10.9 g/dL (12-16); IMMATURE GRANULOCYTES 0.3 % (0-5); LYMPHOCYTES 31.7 % (15-50); MCH 27.8 pg (26.0-34.0); MCHC 28.4 g/dL (31.0-37.0); MEAN PLATELET VOLUME 9.4 fL (7.4-10.4); NEUTROPHILS 58.8 % (40-80); PLATELET COUNT 241 10x3/uL (130-400); RBC 3.92 10x6/uL (4.00-5.40); RDW 19.9 % (11.5-14.5)
[2019-06-16 06:12] LABS: CALCIUM 7.9 mg/dL (8.5-10.1); MAGNESIUM - SERUM 1.6 mg/dL (1.8-2.4); PHOSPHOROUS 2.7 mg/dL (2.5-4.9)
--- NOTE | 2019-06-16 07:19 | NUR ---
PT LAYING SUPINE, AXO. RR EVEN AND UNLABORED. STATED SHE HAD RECFIEVED CARAFATE FROM PRIOR NURSE, BUT IS STILL NAUSEATED. WILL LOOK IN ORDERS FOR OTHER MEDICATIONS. CALL LIGHT WITHIN REACH. BED IN LOWEST POSITION. WILL CONTINUE TO MONIOTR.
[2019-06-16 08:50] VITALS: BP 137/48
--- NOTE | 2019-06-16 09:13 | MORECARE ---
CASE MANAGEMENT DISCHARGE SUMMARY PATIENT: JORDEN AYALA ANN UNIT: [id number] ADM DATE: 06/10/19 AGE: 54 : 67 SEX: F ROOM/BED: D.210 AUTHOR: ABDOULAYE,DOC PHYSICIAN: REFERRING PHYSICIAN: LUDWIG BLAIR MD DATE OF SERVICE: 06/16/19 Discharge Plan Patient Name: JORDEN AYALA Facility: [facility]:[place] : 1965 Planned Disposition: Home Anticipated Discharge Date: 06/15/19 Discharge Date: Expected LOS: 5 Initial Reviewer: [email or web address] Initial Review Date: 06/10/2019 Generated: 06/16/19 10:12 am Comments DCP- Discharge Planning Updated by [email or web address]: Maryuri Garsia on 06/15/19 4:[address] I SPOKE WITH KEIRY AT [facility] SHE STATES THAT SHE HAS A BIPAP AVAPS WITH THE SAME SETTINGS WE HAVE HER ON HERE WITH TV OF 450. STATES THEY WILL F/U WITH THE PATIENT ON DISCHARGE. CM WILL CONTINUE TO FOLLOW AND ASSIST WITH DC PLANNING/NEEDS. DCP- Discharge Planning Updated by [id number]: Maryuri Garsia on 06/15/19 1:[address] Patient Name: JORDEN AYALA Admission Status: ER Accout number: [id number] Admission Date: 06-10-2019 : 1965 Admission Diagnosis:RETENTION OF URINE, UNSPECIFIED Attending: LUDWIG BLAIR Current LOS: 5 Anticipated DC Date: 06-15-2019 Planned Disposition: Home Primary Insurance: [facility] MEDICARE SOLUTIONS Discharge Planning Comments: CM met with patient to discuss discharge planning/needs. She lives with her and son. States plan is to return home with for transportation and feels this is a safe discharge. I discussed the availability of home health, rehab, additional DME, she denies needs. States "I have everything I need." States she has a BIPAP. I called [facility] and confirmed she has a BIPAP/settings are EPAP - 5, IPAP - 15, Rate -10. Currently orders are 20/5 and the settings are the same as written with 40% oxygen. I called Dr. Logan and he states OK for BIPAP at home that [facility] may need to adjust settings. Keiry with [facility] is to return my call. CM will continue to follow and assist with discharge planning/needs. Occasional Caregiver: Maryuri Garsia DCPIA - Discharge Planning Initial Assessment Updated by [email or web address]: Maryuri Garsia on 06/15/19 2:21 pm * Is the patient Alert and Oriented? Yes * How many steps to enter\\exit or inside your home? Ramp/0 * PCP Dr. Eldridge * Pharmacy [facility] * Preadmission Environment Home with Family * ADLs Partial Dependent * Partial ADLs (Assistance needed) Ambulation * Equipment BIPAP Nebulizer Other Oxygen Shower Chair Walker Wheelchair * List name and contact numbers for known caregivers / representatives who currently or will assist patient after discharge: Giles Ayala - spouse - [phone] Chepe Ayala - son - unknown Coverage Notice Reviewer: DMITRY Garsia Notice Issued Date-Time: 06/15/2019 14:14 Notice Type: IM Discharge Notice Notice Delivered To: Patient Relationship to Patient: Self Motor Boss Name: Delivery Method: HAND - Hand Delivered Jayashree Days: Prior Verbal Notification: Recipient Understood Notice: Yes Recipient Signature: Yes Med Rec Note Co-signed by Attending: Coverage Notice Comment: IMM EXPLAINED, SIGNED, GIVEN, COPY PLACED IN MR Reviewer: [id number] A Garsia Notice Issued Date-Time: 06/15/2019 14:14 Notice Type: Patient Choice Letter Notice Delivered To: Patient Relationship to Patient: Self Motor Boss Name: Delivery Method: HAND - Hand Delivered Jayashree Days: Prior Verbal Notification: Recipient Understood Notice: Yes Recipient Signature: Yes Med Rec Note Co-signed by Attending: Coverage Notice Comment: RUDDY FOR [facility] Last DP export: 06/15/19 4:27 p Patient Name: JORDEN AYALA Page [id number] at 0913 All edits/amendments must be made on the electronic document DICTATION DATE: 06/16/19912 CHIEF WHARFINGER: PRINCESS 06/16/19912 RPT#: [id number] DC DATE: STATUS: ADM IN [facility] [address] [place] [address] END OF REPORT
[2019-06-16] MEDS ORDERED: PREDNISONE10 MG PO (10:14)
--- NOTE | 2019-06-16 10:30 | NUR ---
I have reviewed this patient and I concur with the Shift Assessment completed by the Licensed Practical Nurse today this shift.
--- NOTE | 2019-06-16 11:46 | NUR ---
D/C INSTRUCTIONS REVIEWED WITH PT. VERBALIZED AGREEMENT. IV D/C WITH CATHETER TIP INTACT. LEFT VIA WHEELCHAIR WITH ALL BELONGINGS.
--- NOTE | 2019-06-16 11:46 | NUR ---
OT NOTE: PT PERFORMED BED MOB WITH SPV; AMB IN ROOM WITH WALKER AND SBA; SINK HYGIENE/GROOMING TASKS WITH SET UP; ABLE TO MELVIN SOCKS WITH SETUP; AMB INTO HALLWAY FOR STRENGTH/ENDURANCE X 100+ FT WITH WALKER AND CGA. REPORTS THAT SHE HAS BEEN GETTING UP WITHOUT ASSIST TO GO TO BATHROOM.. ABLE TO DEMONSTRATE WITHOUT DIFFICUTLY. PT WANTING TO GO HOME TODAY. STATES THAT IS GOING TO PICK HER UP IF SHE GETS TO LEAVE. CARLOS POWERS, OTR/L [phone]
--- NOTE | 2019-06-16 14:14 | NUR ---
OT NOTE: PT REQUIRED SBA WITH TOILETING TASKS. PT COMPLETED HYGIENE TASKS WITH SBA. PT COMPLETED BED MOB WITH SBA. PT COMPLETED ADL MOB WITH SBA/CGA. [phone] AMADO STONER COTA
--- NOTE | 2019-06-16 15:40 | MORECARE ---
CASE MANAGEMENT DISCHARGE SUMMARY PATIENT: JORDEN AYALA ANN UNIT: [id number] ADM DATE: 06/10/19 AGE: 54 : 67 SEX: F ROOM/BED: D.0986 AUTHOR: ABDOULAYE,DOC PHYSICIAN: REFERRING PHYSICIAN: LUDWIG BLAIR MD DATE OF SERVICE: 06/16/19 Discharge Plan Patient Name: JORDEN AYALA Facility: [facility]:[place] : 1965 Planned Disposition: Home Anticipated Discharge Date: 06/15/19 Discharge Date: 06/16/2019 Expected LOS: 5 Initial Reviewer: [email or web address] Initial Review Date: 06/10/2019 Generated: 06/16/19 4:40 pm Comments DCP- Discharge Planning Updated by [email or web address]: Maryuri Garsia on 06/15/19 4:[address] I SPOKE WITH KEIRY AT [facility] SHE STATES THAT SHE HAS A BIPAP AVAPS WITH THE SAME SETTINGS WE HAVE HER ON HERE WITH TV OF 450. STATES THEY WILL F/U WITH THE PATIENT ON DISCHARGE. CM WILL CONTINUE TO FOLLOW AND ASSIST WITH DC PLANNING/NEEDS. DCP- Discharge Planning Updated by [email or web address]: Maryuri Garsia on 06/15/19 1:[address] Patient Name: JORDEN AYALA Admission Status: ER Accout number: [id number] Admission Date: 06-10-2019 : 1965 Admission Diagnosis:RETENTION OF URINE, UNSPECIFIED Attending: LUDWIG BLAIR Current LOS: 5 Anticipated DC Date: 06-15-2019 Planned Disposition: Home Primary Insurance: [facility] MEDICARE SOLUTIONS Discharge Planning Comments: CM met with patient to discuss discharge planning/needs. She lives with her and son. States plan is to return home with for transportation and feels this is a safe discharge. I discussed the availability of home health, rehab, additional DME, she denies needs. States "I have everything I need." States [facility]/settings are EPAP - 5, IPAP - 15, Rate -10. Currently orders are 20/5 and the settings are the same as written with 40% oxygen. I called Dr. Logan and he states OK for BIPAP at home that [facility] may need to adjust settings. Keiry with [facility] is to return my call. CM will continue to follow and assist with discharge planning/needs. Vice President Of Consulting Services: Maryuri Garsia DCPIA - Discharge Planning Initial Assessment Updated by [email or web address]: Maryuri Garsia on 06/15/19 2:21 pm * Is the patient Alert and Oriented? Yes * How many steps to enter\\exit or inside your home? Ramp/0 * PCP Dr. Eldridge * Pharmacy [facility] * Preadmission Environment Home with Family * ADLs Partial Dependent * Partial ADLs (Assistance needed) Ambulation * Equipment BIPAP Nebulizer Other Oxygen Shower Chair Walker Wheelchair * List name and contact numbers for known caregivers / representatives who currently or will assist patient after discharge: Giles Ayala - spouse - [phone] Chepe Ayala - son - unknown Coverage Notice Reviewer: DMITRY Garsia Notice Issued Date-Time: 06/15/2019 14:14 Notice Type: IM Discharge Notice Notice Delivered To: Patient Relationship to Patient: Self Preschool Disability Teacher Name: Delivery Method: HAND - Hand Delivered Jayashree Days: Prior Verbal Notification: Recipient Understood Notice: Yes Recipient Signature: Yes Med Rec Note Co-signed by Attending: Coverage Notice Comment: IMM EXPLAINED, SIGNED, GIVEN, COPY PLACED IN MR Reviewer: [id number] A Garsia Notice Issued Date-Time: 06/15/2019 14:14 Notice Type: Patient Choice Letter Notice Delivered To: Patient Relationship to Patient: Self Preschool Disability Teacher Name: Delivery Method: HAND - Hand Delivered Jayashree Days: Prior Verbal Notification: Recipient Understood Notice: Yes Recipient Signature: Yes Med Rec Note Co-signed by Attending: Coverage Notice Comment: RUDDY FOR [facility] Last DP export: 06/16/19 8:13 a Patient Name: JORDEN AYALA Page [id number] at 1540 All edits/amendments must be made on the electronic document DICTATION DATE: 06/16/19 1540 COMMISSARY PRODUCTION SUPERVISOR: PRINCESS 06/16/19 1540 RPT#: [id number] DC DATE:06/16/19 STATUS: DIS IN [facility] [address] [place] [address] END OF REPORT
== END 2019-06-16 11:49 | disposition home or self-care (01) | DRG 871 ==
LOC: D.ER 15:34 → D.ICU 17:43 → D.M2 17:43 → D.ICU 06-11 09:36 → D.M2 06-13 11:56 → D.SDCHOLD 06-14 12:19 → D.M2 06-14 12:21
PROVIDERS: Family Medicine; Internal Medicine; ADMIT Internal Medicine Nephrology; ATTEND Internal Medicine Nephrology
PROC: 5A09457 Assistance with Respiratory Ventilation, 24-96 Consecutive Hours, Continuous Positive Airway Pressure (ICD-10-PCS; principal; 2019-06-11)
DX: A41.9 Sepsis, unspecified organism (principal); R65.21 Severe sepsis with septic shock; J96.22 Acute and chronic respiratory failure with hypercapnia; J96.21 Acute and chronic respiratory failure with hypoxia; N17.0 Acute kidney failure with tubular necrosis; G93.41 Metabolic encephalopathy; J18.9 Pneumonia, unspecified organism; N39.0 Urinary tract infection, site not specified; Z68.43 Body mass index [BMI] 50.0-59.9, adult; E87.1 Hypo-osmolality and hyponatremia; J44.1 Chronic obstructive pulmonary disease with (acute) exacerbation; E11.9 Type 2 diabetes mellitus without complications; I11.0 Hypertensive heart disease with heart failure; I50.9 Heart failure, unspecified; K21.9 Gastro-esophageal reflux disease without esophagitis; E66.01 Morbid (severe) obesity due to excess calories; E78.5 Hyperlipidemia, unspecified; F41.8 Other specified anxiety disorders; F43.10 Post-traumatic stress disorder, unspecified; D50.9 Iron deficiency anemia, unspecified; E87.5 Hyperkalemia; Z86.73 Personal history of transient ischemic attack (TIA), and cerebral infarction without residual deficits